=== PATIENT | male | born 1940 | race Caucasian/White ===

== ENCOUNTER → 2023-10-15 15:42 | Outpatient (REF) | payer OTHER, SELFPAY | LOC: HWRAD 15:42 | PROVIDERS: ATTENDING PHYSICIAN Family Medicine | DX: S32.000A Wedge compression fracture of unspecified lumbar vertebra, initial encounter for closed fracture (principal) | CPT/HCPCS: 72110 ==

== ENCOUNTER → 2023-10-29 06:28 | Day surgery (SDC) | payer OTHER, SELFPAY | LOC: GI 06:28 | PROVIDERS: ATTENDING PHYSICIAN Internal Medicine Gastroenterology | DX: R13.10 Dysphagia, unspecified (principal); K44.9 Diaphragmatic hernia without obstruction or gangrene; K22.70 Barrett's esophagus without dysplasia; K21.00 Gastro-esophageal reflux disease with esophagitis, without bleeding | CPT/HCPCS: 43239; 88305 ==

== ENCOUNTER → 2024-05-26 10:49 | Outpatient (REF) | payer OTHER, SELFPAY | LOC: DHSLP 10:49 | PROVIDERS: ATTENDING PHYSICIAN Internal Medicine; FAMILY PHYSICIAN Family Medicine | DX: G47.61 Periodic limb movement disorder (principal); G47.00 Insomnia, unspecified; G47.8 Other sleep disorders; R06.83 Snoring | CPT/HCPCS: 95810 ==

== ENCOUNTER → 2024-05-30 10:13 | Outpatient (REF) | payer OTHER, SELFPAY | LOC: HWRAD 10:13 | PROVIDERS: ATTENDING PHYSICIAN Internal Medicine Gastroenterology; FAMILY PHYSICIAN Family Medicine | DX: K70.30 Alcoholic cirrhosis of liver without ascites (principal) | CPT/HCPCS: 76700 ==

== ENCOUNTER 2024-09-21 14:35 | Outpatient (RCR) | payer OTHER, SELFPAY | END 2024-09-21 23:59 | disposition home or self-care (01) | LOC: RPT 14:35 | PROVIDERS: ATTENDING PHYSICIAN Family Medicine | DX: R26.89 Other abnormalities of gait and mobility (principal); Z73.6 Limitation of activities due to disability; M62.81 Muscle weakness (generalized) | CPT/HCPCS: 97010; 97110; 97112; 97163 ==

== ENCOUNTER → 2024-10-10 11:25 | Outpatient (REF) | payer OTHER, SELFPAY | LOC: HWRAD 11:25 | PROVIDERS: ATTENDING PHYSICIAN Internal Medicine Gastroenterology; FAMILY PHYSICIAN Family Medicine | DX: K70.30 Alcoholic cirrhosis of liver without ascites (principal) | CPT/HCPCS: 76700 ==

== ENCOUNTER 2024-10-26 14:43 | Outpatient (RCR) | payer OTHER, SELFPAY | END 2024-10-26 23:59 | disposition home or self-care (01) | LOC: RPT 14:43 | PROVIDERS: ATTENDING PHYSICIAN Family Medicine | DX: R26.89 Other abnormalities of gait and mobility (principal); Z73.6 Limitation of activities due to disability; M62.81 Muscle weakness (generalized) | CPT/HCPCS: 97010; 97110; 97112; 97116; 97530 ==

== ENCOUNTER 2024-11-02 14:45 | Outpatient (RCR) | payer OTHER, SELFPAY | END 2024-11-30 13:56 | disposition home or self-care (01) | LOC: RPT 14:45 | PROVIDERS: ATTENDING PHYSICIAN Family Medicine | DX: R26.89 Other abnormalities of gait and mobility (principal); M62.81 Muscle weakness (generalized); Z73.6 Limitation of activities due to disability | CPT/HCPCS: 97110; 97112 ==

== ENCOUNTER 2025-01-07 14:21 | Inpatient (IN) | payer OTHER, SELFPAY ==
[2025-01-07] VITALS (26 sets, daily range): BP systolic 84–181; BP diastolic 39–153; BMI 30.1; BMI 30.4
--- NOTE | 2025-01-07 12:24 | ED.GENMED ---
History of Present Illness
General
Chief Complaint: Weakness
Source: patient
Time Seen by Provider: 01/07/25 12:11
History of Present Illness
History of Present Illness:
This patient is an 84-year-old male, history of known alcohol use disorder, was intending to go to [place] for this on Thursday but has since changed his mind. His last drink of alcohol was 2 days ago. He notes increasing weakness and this
morning was unable to get out of bed which prompted him to call EMS. He was noted to be hypotensive and lightheaded, incontinent of stool. Patient states he is not incontinent but rather unable to make it to the toilet. He denies any specific
areas of pain, or focal weakness, just reports overall generalized weakness. He denies headache, chest pain, shortness of breath, cough, abdominal pain, nausea, vomiting. His stools have been brown without blood or melena. Patient denies other
complaints.
Past History
Past History
ED Past Medical History: GERD, Hypothyroidism and Other (peptic ulcer disease and chronic alcohol abuse, he has BPH alcohol withdrawal seizures difficulty with balance, colon polyps. )
ED Past Surgical History: Tonsilectomy, Urological and Other (The patient has had polypectomy, and prostate surgery. )
Social History
Tobacco: Non-smoker
Alcohol: Chronic alcoholic
Drug: None
Personal:
Living: with family
Employment: Not employed
Family History
Family History: Hypertension
Phy Exam
Physical Exam
Physical Exam:
GENERAL: Awake but tired appearing, in no apparent distress
EYE: pupils equal and reactive, conjunctive a slightly pale
NECK: Supple, no significant adenopathy.
ENT: o/p clr, mm extremely dry with dried blackish appearing discoloration at lips and tongue. Patient denies coffee-ground emesis or any vomiting and states that this discoloration is related to drinking red wine
CARDIAC: Regular rate and rhythm .
LUNGS: Clear breath sounds bilaterally, no acute respiratory distress, no wheezes/rales/rhonchi
ABDOMEN: Soft, without focal tenderness, no r/g
NEUROLOGICAL: Awake and oriented, no focal neuro deficits, follows commands, lucid
SKIN: Warm and dry, skin intact.
MUSCULOSKELETAL: No edema, well perfused.
PSYCH: Normal and appropriate interaction.
Course
Orders/Labs/Results
Orders:
Orders
01/07/25 11:53
EKG [Electrocardiogram (*1)] Urgent
Reason for Study: Chest Pain
EKG- Treatment ONCE
01/07/25 12:02
Acetaminophen Urgent
Comment: ADD ON
Alcohol Urgent
B-Hydroxybutyrate Urgent
Comment: ADD ON
Complete Blood Count/With Diff Urgent
Comprehensive Metabolic Panel Urgent
LDH Urgent
Comment: ADD ON
Magnesium Urgent
Comment: ADD ON
Phosphorus Urgent
Comment: ADD ON
Salicylate Urgent
Comment: ADD ON
01/07/25 12:21
Ammonia Urgent
01/07/25 12:22
Cardiac Monitoring- Treatment ONCE
Urinalysis Reflex To Culture Urgent
Date Specimen was Collected: 01/08/25
Time Specimen was Collected: 11:27
0.9% Sodium Chloride 1000 ml [Nss] 2,100 ml IV NOW STA
01/07/25 12:23
EKG- Treatment ONCE
01/07/25 12:27
Lactic Acid Q4H
Comment: CANCEL 2nd LACTIC ACID IF 1st LACTIC ACID IS LESS THAN 2
Troponin I Urgent
Blood Culture Q30M
BOB Source: Blood/Venous
Specimen Description:
Blood Culture Q30M
BOB Source: Blood/Venous
Specimen Description:
Pantoprazole [Protonix IV] 40 mg IV NOW STA
01/07/25 13:00
Flush (0.9% Sodium Chloride) [Flush (Nss)] See Dose Instructions IV PER PROTOCOL
Sterile Water For Inj [Sterile Water For Injection 1000 ml] 1,000 ml Sodium Chloride 38.5 meq Sodium Bicarbonate 100 meq IV 999 mls/hr
01/07/25 14:00
0.9% Sodium Chloride 1000 ml [Nss] 1,000 ml Mvi, Adult [Multivitamin] 10 ml Thiamine Injection 100 mg FOLic ACID [Folvite] 1 mg IV 500 mls/hr
01/07/25 14:09
Admit/Transfer Patient As Directed
Co-Sign Provider:
Level of Care: Inpatient admission
Assign to:: ICU
Physician / Group: rick
Diagnosis: SIRS of uncertain origin, severe metabolic acidosis
Reason for Hospitalization: SIRS of uncertain origin, severe metabolic acidosis with AG 27, Lactate acidosis,
acute ETOH hepatitis, DANIEL, severe thrombocytopemia, at hi risk for ETOH WDS
Expected length of stay greater than two midnights?: Yes
ELOS- Estimated Length of Stay in days: 5
I certify the patient meets the requirements for IP care: Yes
01/07/25 14:12
Code Status As Directed
Resuscitation Status: Full Code
01/07/25 16:52
0.9% Sodium Chloride 1000 ml [Nss] 1,000 ml IV 120 mls/hr
Bisacodyl [Dulcolax] 10 mg RECTAL [id number] PRN
Docusate W/Senna [Senokot-S] 1 tablet PO BIDPRN PRN
Polyethylene Glycol Powder [Miralax] 17 grams PO DAILYPRN PRN
01/07/25 16:52
GASTROINTESTINAL CONSULT Routine
Consulting Provider: Polina Hunter
Was physician already notified: Yes
Reason for consult: SIRS of uncertain origin, severe metabolic acidosis with AG 27, Lactate aci
HEMATOLOGY CONSULT Routine
Consulting Provider: Benny Prado
Was physician already notified: Yes
Reason for consult: SIRS of uncertain origin, severe metabolic acidosis, severe thrombocytosis,
[facility] Consult Routine
Consulting Provider: Yenni Smalls
Was physician already notified: Yes
Reason for consult: SIRS of uncertain origin, severe metabolic acidosis with AG 27, Lactate aci
NEPHROLOGY CONSULT Routine
Consulting Provider: Chance Banerjee
Was physician already notified: Yes
Reason for consult: SIRS of uncertain origin, severe metabolic acidosis with AG 27, Lactate aci
Activity As Directed
Activity Level: With Assistance
Intake/ Output As Directed
Frequency: Per unit guidelines
Pneumatic Compression Sleeves As Directed
Type: Knee high
Vital Signs As Directed
Frequency: Per unit guidelines
Weight As Directed
Frequency: Daily
DX Deep Vein Thrombosis Video Routine
01/07/25 17:33
Lactic Acid Q4H
Comment: CANCEL 2nd LACTIC ACID IF 1st LACTIC ACID IS LESS THAN 2
01/07/25 18:00
Piperacillin/Tazo 3.375 Gram [Zosyn] 3.375 gram in 50 ml IV Q6H
01/08/25 05:18
Complete Blood Count/No Diff IN AM
Comprehensive Metabolic Panel IN AM
Magnesium IN AM
01/08/25 06:00
Levothyroxine [Synthroid] 100 mcg PO DAILY@0600
01/09/25 08:08
Comprehensive Metabolic Panel IN AM
Magnesium IN AM
01/10/25 05:47
Comprehensive Metabolic Panel IN AM
Magnesium IN AM
Abnormal Lab Results
01/07/25 01/07/25
12:02 12:27
RBC 3.73 L 10^6/uL
(4.70-6.10)
Hgb 9.9 L g/dL
(13.0-18.0)
Hct 31.3 L %
(39.0-52.0)
MCH 26.5 L pg
(27.0-31.0)
MCHC 31.6 L g/dL
(33.0-37.0)
RDW 19.9 H %
(11.5-14.5)
Plt Count 36 L 10^3/uL
(130-400)
Abs Immat Gran (auto) 0.3 H 10^3/uL
(0-0.05)
Absolute Lymphs (auto) 1.1 L 10^3/uL
(1.2-3.4)
Absolute Monos (auto) 0.8 H 10^3/uL
(0.1-0.6)
Immature Gran % 4.0 H %
(0-0.5)
Lymphocytes % 16.0 L %
(20.5-51.1)
Monocytes % 12.0 H %
(1.7-9.3)
Sodium 134 L mmol/L
(135-145)
Carbon Dioxide 9 L* mmol/L
(22-30)
Creatinine 1.5 H mg/dL
(0.7-1.3)
Glucose 127 H mg/dl
(70-99)
Serum Osmolality 322 H mOsm/kg
(275-300)
Lactic Acid 14.1 H* mmol/L
(0.7-2.0)
Phosphorus 4.7 H mg/dl
(2.5-4.5)
Total Bilirubin 1.8 H mg/dl
(0.2-1.3)
AST 175 H U/L
(17-59)
ALT 82 H U/L
(0-50)
Alkaline Phosphatase 146 H U/L
(38-126)
Lactate Dehydrogenase 322 H U/L
(120-246)
Salicylates < 1.0 L mg/dl
(2.0-20.0)
Acetaminophen < 10 L ug/ml
(10-30)
B-Hydroxybutyrate 0.51 H mmol/L
(0.02-0.27)
01/07/25 12:02
01/07/25 12:02
Vital Signs
Initial and Last Documented VS:
Initial Vital Signs
Temp Pulse Resp Pulse Ox
96.1 F L 112 22 98
01/07/25 11:37 01/07/25 11:37 01/07/25 11:37 01/07/25 11:37
Last Documented Vital Signs
Temp Pulse Resp BP Pulse Ox
97.7 F 81 16 133/73 96
01/15/25 12:48 01/15/25 12:48 01/15/25 12:48 01/15/25 12:48 01/15/25 12:48
*Critical Care Note
Total Time (30-74mins, 75-104mins- exclusive of procedures): Not Applicable
Update Note
Update Note:
Patient presents to the Emergency Department with __generalized weakness
Number and Complexity of Problems Addressed at the Encounter
� Chronic conditions affecting care: History of fatty liver and alcohol use disorder
� Acute Exacerbation and/or Progression of Chronic Illness:
� Differential Diagnosis includes: But not limited to DKA, AKA, profound dehydration, sepsis, alcohol withdrawal, electrolyte disorder, etc. etc.
Amount and/or Complexity of Data to be Reviewed and Analyzed
� I performed an independent evaluation of and my interpretation is:
EKG: Read by me, sinus tachycardia, nonspecific T wave flattening, no acute ischemia
CT:
Xrays:
Laboratory Studies: Patient noted to be severely acidotic here with a anion gap, blood glucose level normal likely consistent with AKA, beta hydroxybutyrate, lactic acid, etc. pending. LFT abnormalities and anemia noted but at
baseline. Noted to have severelactic acidosis,?related to AUD vs liver dz vs hypotension.
Other:
� Review of other/old records reveals: Patient has had an endoscopy in the recent past, records reviewed, history of alcohol use disorder, fatty liver, reflux, etc.
� Clinical information was obtained by an independent historian:
� Prescriptions/Medications Considered but not given:
� Further testing considered but not performed:
Risk of Complications and/or Morbidity or Mortality of Patient Management
� Social determinants of health affecting care:
� Discussion with other providers (PCP, Hospitalists, Consultants, etc):
� Escalation of care including admission/observation vs risk of discharge considered: Bicarb drip started, volume resuscitation, PPI. No active bleeding. PT still awake lucid but remains hypotensive, almost 1800 ml infused.
placing second line now, may need pressors, suspect severe volume depletion however. Hospitalist aware, ICU.
Repeat assessment, bp is improving.
ED Attending Note
-
Portions of this chart may have been created with voice recognition software.� Occasional wrong word or��sound alike� substitutions may have occurred due to the inherent limitations of voice recognition software.
Discharge Plan
Departure
Patient Disposition: Admit
Date of Disposition: 01/07/25
Time of Disposition: 14:00
Admit to: ICU
Presentation/result/management discussed w/ accepting MD/DO: Hospitalist
Condition: Critical
Discharge Problem:
Metabolic acidosis, Dehydration
Interventions
Interventions:
*General Assessment Last Done: 01/07/25 12:22
*Neglect/Abuse Screening Last Done: 01/07/25 12:22
*ED- Fall Risk Assessment Last Done: 01/07/25 12:22
*Nursing Disposition Last Done: 01/07/25 17:00
ED- Cardiac Assessment Last Done: 01/07/25 12:22
ED- Neurological Assessment Last Done: 01/07/25 12:22
ED- Pulmonary Assessment Last Done: 01/07/25 12:22
Discharge Date and Time
Discharge Date/Time: 01/07/25 17:00
[2025-01-07] MEDS: NSS 2100 ML IV (12:25)
[2025-01-07 12:32] LABS: % Basophils 0.2 % (0-2); % Eosinophils 0.2 % (0-6); % Neutrophils 67.6 % (42.2-75.2); Absolute Immature Granulocytes 0.3 10^3/uL (0-0.05); Absolute Lymphocytes 1.1 10^3/uL (1.2-3.4); Absolute Monocytes 0.8 10^3/uL (0.1-0.6); Absolute Neutrophils 4.4 10^3/uL (1.4-6.5); Hematocrit 31.3 % (39.0-52.0); Hemoglobin 9.9 g/dL (13.0-18.0); Mean Corp Hgb Conc. 31.6 g/dL (33.0-37.0); Mean Corpuscular Hgb 26.5 pg (27.0-31.0); Mean Corpuscular Volume 83.9 fL (80.0-94.0); Nucleated Red Blood Cells % 1.2 % (-); Red Blood Cell Count 3.73 10^6/uL (4.70-6.10); Red Cell Dist. Width 19.9 % (11.5-14.5); White Blood Cell Count 6.6 10^3/uL (4.8-10.8)
[2025-01-07 12:39] LABS: AST (SGOT) 175 U/L (17-59); Albumin 4.1 g/dl (3.5-5.0); Alcohol 135 mg/dl; Alkaline Phosphatase 146 U/L (38-126); Blood Urea Nitrogen 9 mg/dl (9-20); Calcium 8.8 mg/dl (8.4-10.2); Carbon Dioxide 9 mmol/L (22-30); Chloride 98 mmol/L (98-107); Estimated Creatinine Clearance 41 ml/min; Glucose 127 mg/dl (70-99); Potassium 4.3 mmol/L (3.5-5.1); Sodium 134 mmol/L (135-145); Total Bilirubin 1.8 mg/dl (0.2-1.3); Total Protein 7.8 g/dl (6.3-8.2); eGFR 45.91
[2025-01-07 12:40] LABS: Ammonia 22 umol/L (9-30)
[2025-01-07 12:48] LABS: ALT (SGPT) 82 U/L (0-50)
[2025-01-07 13:03] LABS: Mean Platelet Volume 9.9 fL (7.4-10.4); Platelet Count 36 10^3/uL (130-400)
[2025-01-07 13:08] LABS: Troponin I < 0.012 ng/ml
[2025-01-07 13:18] LABS: Lactic Acid 14.1 mmol/L (0.7-2.0)
--- NOTE | 2025-01-07 13:38 | HPS.HSE ---
Addendum entered and electronically signed by Jasson Ascencio MD 01/07/25 15:19:
Laboratory Tests
01/07/25
12:02
B-Hydroxybutyrate 0.51 H
POS BHB suspect ETOH ketosis
Original Note:
Family Physician
-
Family Physician: NO INTERVIEW UNKNOWN
Chief Complaint
-
increasing weakness
History of Present Illness
HPI
84M HX ETOH use disorder, ETOH WD Sz, GERD, PUDz, was intending to go to [place] for this on Thursday but has since changed his mind.
- last drink of alcohol was 2 days ago
- reports increasing weakness and this morning was unable to get out of bed which prompted him to call EMS.
- brown stools , denied blood or melena.
- denies any specific areas of pain, or focal weakness, just reports overall generalized weakness.
- denies headache, chest pain, shortness of breath, cough, abdominal pain, nausea, vomiting.
At ER
- hypotensive and lightheaded
- faecal incontinence due to urgency and caught short
Medical History
Past Medical History
Past Medical History: Reports GERD (Peptic ulcer dz ), Hypothyroidism, Seizures (, ETOH withdrawal Sz) and Other (ETPH use disorder )
Additional Past Medical History:
BPH, balalnce disorder, Colon polyps
Past Surgical History: Reports Urological ( prostate surgery. )) and Other (polypectomy)
Social History
Tobacco: Non-smoker
Alcohol: Chronic Alcoholic
Personal:
Living: With Family
Employment: Not Employed
Family History
Family History: Hypertension
Allergies / Home Medications
Allergies reflects when Allergies were last updated in [facility].
Home Medications with original date entered in [facility]
Allergy/Medication List:
Allergies
Allergy/AdvReac Type Severity Reaction Status Date / Time
No Known Allergies Allergy Verified 01/29/22 13:28
Home Medications
quetiapine 100 mg tablet 100 mg PO HS Mental Health/Anxiety 11/17/19
venlafaxine 37.5 mg capsule,extended release 24 hr (Effexor XR) 37.5 mg PO BID Mental Health/Anxiety 11/17/19
buspirone 10 mg tablet 20 mg PO DAILY Mental Health/Anxiety 12/02/19
levothyroxine 100 mcg tablet 100 mcg PO DAILY Thyroid 12/02/19
quetiapine 25 mg tablet 50 mg PO BID Mental Health/Anxiety 12/02/19
trazodone 100 mg tablet 100 mg PO HS Mental Health/Anxiety 12/02/19
Prevagen 1 tab PO DAILY Supplement 01/21/20
omeprazole 10 mg capsule,delayed release (Prilosec) 40 mg PO DAILY Gastrointestinal issue 01/21/20
acetaminophen 325 mg tablet 650 mg (2 x 325 mg) PO Q6HPRN PRN moderate pain #30 tabs 01/25/20
<del>amoxicillin</del> <del>500</del> <del>mg</del> <del>capsule</del> <del>500</del> <del>mg</del> <del>PO</del> <del>TID</del> <del>14</del> <del>days</del> <del>#42</del> <del>caps</del> <del>01/25/20</del>
Review of Systems
-
Constitutional: Reports Fatigue (weakness )
EENT: Reports No Symptoms
Respiratory: Reports No Symptoms
Cardiac: Reports No Symptoms
Abdomen/GI: Reports No Symptoms
: Reports No Symptoms
Musculoskeletal: Reports No Symptoms
Skin: Reports No Symptoms
Neurological: Reports No Symptoms, Dizzy, Weakness and Other (associated ambulatory dysfunction )
Endocrine: Reports No Symptoms
Hematologic/Lymphatic: Reports No Symptoms
Psych: Reports No Symptoms
Physical Exam
Vital Signs
Vital Signs
Temp Pulse Resp BP Pulse Ox
96.1 F L 107 17 84/48 96
01/07/25 11:37 01/07/25 12:04 01/07/25 12:04 01/07/25 12:03 01/07/25 12:04
Physical Exam
General: Conversant and Other (looks tired )
HEENT: NormoCephalic, PERRLA and Other ( dried blackish appearing discoloration at lips and tongue. Patient denies coffee-ground emesis or any vomiting and states that this discoloration is related to drinking red wine); No [place] Conjunctivae (pale
conjunctiva )
Respiratory: Clear
Cardiac: S1/S2 and JVD
GI: Soft and Non Tender
Genito-urinary: Deferred by me
Neuro: Awake, AO x 3 and Nonfocal/grossly intact
Psych: Other (Normal and appropriate interaction.)
Laboratory Results
-
01/07/25 12:02
01/07/25 12:02
Laboratory Results
Lactic Acid 14.1 mmol/L (0.7-2.0) H* 01/07/25 12:27
Total Bilirubin 1.8 mg/dl (0.2-1.3) H 01/07/25 12:02
AST 175 U/L (17-59) H 01/07/25 12:02
ALT 82 U/L (0-50) H 01/07/25 12:02
Alkaline Phosphatase 146 U/L (38-126) H 01/07/25 12:02
Troponin I < 0.012 ng/ml 06/07/25 12:27
Data Reviewed
-
Diagnostic Radiology: Report Reviewed by me
Lab Data: Labs Reviewed by me
Old Records: Reviewed
Impression/Plan
-
Selected Entries
01/07/25
11:37 01/07/25
12:03 01/07/25
12:04
Temp 96.1 F L
Temp route: Rectal
Pulse 112 107
Resp Rate 22 17
Blood pressure 84/48
SaO2 98 96
[place]
01/29/22 01/07/25
14:56 12:02
Hgb 12.2 L 9.9 L
Plt Count 222 36 L
Sodium 134 L 134 L
Carbon Dioxide 28 9 L*
Creatinine 1.0 1.5 H
10/25/24 Abdominal ultrasound.
- The liver is normal in size, measuring 17.0 cm in length.
- It is normal in echogenicity.
- There is no focal hepatic lesion or intrahepatic biliary dilation.
- The gallbladder has been removed.
- The common duct is normal, measuring 3 mm.
- The pancreas is nonvisualized due to overlying bowel gas.
- The spleen is normal in size and shows no focal abnormality.
- Survey evaluation of the kidneys shows no hydronephrosis.
- No free fluid is seen in the abdomen.
- The proximal IVC and abdominal aorta are nonvisualized due to overlying bowel gas.
Last hospitalist admission: 01/21/2020 - 01/25/2020
DC DXS:
1. Acute calculous cholecystitis.
2. Enterococcus bacteremia.
ASSESSMENT & PLAN
Pending Rx reconciliation
SIRS picture ( Hypothermic, tachycardic, Hypotensive)
DDX: severe dehydration vs. element of sepsis vs. metabolic severe acid base dysfunction
- BCx sent
- unable to order PCT to DANIEL and ALI
- Empiric IV Zosyn
- Renal and ICU consult
Severe metabolic acidosis AG 27 DDX : ETOH starvation Ketosis
lactate acidosis with LA 14
Sever hypocarbia @ [address] 1.5, eGFR 45
BG 127
BCx sent
- Pending BHB
- check VBG
- s/p IV NS 2100 ml - cont IV NS
- HCO3 gtt ( Na HCO3 100meq in sterile water ) @ 125 ml/H
- Await ICU and Renal evaluation
Acute ETOH hepatitis
Transaminitis ( Revered AST@ 175 & ALT@ 82 ratio)
- Pending Salicylates and Acetaminophen level
- Pending Mg and Phos
- GI consult
Severe thrombocytopenia - Plt 36 : Consumption due to Hypersplenism
Normal Albumin 4.1
- US complete abdomen
- avoid NSIAD and Platelets
- Heme Consult
HX ETOH use disorder
HX ETOH WD Sz
- ETOH WD protocol
HX GERD
HX PUDz
- on OP PO PPI - will switch to IV PPI daily
Hypothyroidism
- Pending Rx reconciliation (levothyroxine 100 mcg is listed )
Depression and Anxiety
- Pending Rx reconciliation ( quetiapine + venlafaxine + buspirone + trazodone are listed)
DVT Px: SCD
Full code
ICU
Total Critical Care Time__65 _ minutes. I was immediately available to the patient and staff. I personally examined, reviewed labs, diagnostic images/reports, interpretations, treatment plans, discussed patient care with other providers and
family or caregivers (if patient is unable to make decisions), entered orders as appropriate and documented the medical record.
[2025-01-07] MEDS: PROTONIX IV 40 MG IV (13:56)
[2025-01-07] MEDS: SODIUM CHLORIDE 1109.625 MEQ IV ×2 (13:56)
--- NOTE | 2025-01-07 14:26 | W.CON.NEPH ---
Consultation
-
Date/Time Consultation Requested: 01/07/251429
Date/Time Consultation Performed: 01/07/251429
Requesting Provider: Dr. Ascencio
Performing Provider: Dr. Banerjee
Reason for Consultation: DANIEL
Medical History
-
Chief Complaint: weakness
History of Present Illness:
This patient is an 84-year-old male, with alcohol use disorder. His last drink of alcohol was 2 days ago. He notes increasing weakness and this morning was unable to get out of bed. He says he fell out of bed today which prompted him to call EMS.
He was noted to be hypotensive and lightheaded, incontinent of stool. Patient states he is not incontinent but rather unable to make it to the toilet. Therefore he wears a diaper. He denies being lightheaded or dizzy. He also denies any pain
whatsoever. There is no itching. He denies any issues with stool or urine. There has been no epistaxis. He is does not appear to be aware of any bruising. Oral intake has been poor for at least 3 days.
Past Medical History
GERD
Hypothyroidism
peptic ulcer disease
chronic alcohol abuse
BPH
alcohol withdrawal seizures
subdural hematoma
diverticulosis
colon polyps
Tonsillectomy
cataract surgery
polypectomy
bladder CA/surgery (TURBT)
cholecystectomy
Social History
Tobacco: Non-Smoker
Alcohol: Chronic Alcoholic
Family History
Family History: Hypertension
Allergies / Home Medications
Allergy/AdvReac Type Severity Reaction Status Date / Time
No Known Allergies Allergy Verified 01/29/22 13:28
�Medication �Instructions �Recorded �Confirmed �Type
quetiapine 100 mg tablet 100 mg PO HS Mental Health/Anxiety 11/17/19 01/21/20 History
venlafaxine 37.5 mg 37.5 mg PO BID Mental 11/17/19 01/21/20 History
capsule,extended release 24 hr Health/Anxiety
(Effexor XR)
buspirone 10 mg tablet 20 mg PO DAILY Mental 12/02/19 01/21/20 History
Health/Anxiety
levothyroxine 100 mcg tablet 100 mcg PO DAILY Thyroid 12/02/19 01/21/20 History
quetiapine 25 mg tablet 50 mg PO BID Mental Health/Anxiety 12/02/19 01/21/20 History
trazodone 100 mg tablet 100 mg PO HS Mental Health/Anxiety 12/02/19 01/21/20 History
Prevagen 1 tab PO DAILY Supplement 01/21/20 01/21/20 History
omeprazole 10 mg capsule,delayed 40 mg PO DAILY Gastrointestinal 01/21/20 01/21/20 History
release (Prilosec) issue
acetaminophen 325 mg tablet 650 mg (2 x 325 mg) PO Q6HPRN PRN 01/25/20 Rx
moderate pain #30 tabs
amoxicillin 500 mg capsule 500 mg PO TID 14 days #42 caps 01/25/20 Rx
Review of Systems
-
All other systems: Negative unless noted
Physical Exam
Vital Signs
Vital Signs
Temp Pulse Resp BP Pulse Ox
96.1 F L 116 24 97/48 98
01/07/25 11:37 01/07/25 14:04 01/07/25 14:04 01/07/25 14:04 01/07/25 13:20
Lab Results
WBC 6.6 10^3/uL (4.8-10.8) 01/07/25 12:02
RBC 3.73 10^6/uL (4.70-6.10) L 01/07/25 12:02
Hgb 9.9 g/dL (13.0-18.0) L 01/07/25 12:02
Hct 31.3 % (39.0-52.0) L 01/07/25 12:02
Plt Count 36 10^3/uL (130-400) L 01/07/25 12:02
Sodium 134 mmol/L (135-145) L 01/07/25 12:02
Potassium 4.3 mmol/L (3.5-5.1) 01/07/25 12:02
Chloride 98 mmol/L (98-107) 01/07/25 12:02
Carbon Dioxide 9 mmol/L (22-30) L* 01/07/25 12:02
BUN 9 mg/dl (9-20) 01/07/25 12:02
Creatinine 1.5 mg/dL (0.7-1.3) H 01/07/25 12:02
eGFR 45.91 01/07/25 12:02
Glucose 127 mg/dl (70-99) H 01/07/25 12:02
Calcium 8.8 mg/dl (8.4-10.2) 01/07/25 12:02
Phosphorus Cancelled 01/07/25 13:31
Albumin 4.1 g/dl (3.5-5.0) 01/07/25 12:02
Laboratory Tests
01/29/22
14:56
Creatinine 1.0
Laboratory Tests
01/07/25
12:27
Lactic Acid 14.1 H*
Physical Exam
Patient is awake alert oriented to year only (December 2024, no date) and in no distress. Mood and affect were pleasant, insight and judgment were poor. Pupils are equal round and reactive to light, extraocular movements are intact, sclera were
anicteric. Hearing was normal, ears and nose are intact. Oropharynx was clear but dry. Neck was supple with trachea midline and no thyromegaly. Heart was regular rate and rhythm without rubs. Lower extremities without edema. Lungs were clear to
auscultation bilaterally and with normal excursion. Abdomen was soft, nontender, with normal active bowel sounds, and no hepatosplenomegaly. Skin was with petechial rash thighs bilaterally and with normal turgor.
Data Reviewed
-
Medical Tests (Nuc Med, Echo etc): Image Personally Visualized and interpreted (EKG 01/07/25 my reading nsr, inferior q)
Assessment/Plan
-
Assessment
DANIEL
Anemia
Thrombocytopenia
Metabolic acidosis, anion gap
Lactic acidosis
Hyponatremia
Alcohol use disorder
Hypotension
Failure to thrive
Fall
Plan
Aggressive volume resuscitation
Bicarbonate based fluids
Bladder scan, check urine if available
VBG
CT abdomen pelvis
Blood cultures pending
Critical care time spent 31 minutes
[2025-01-07 14:47] LABS: Phosphorus 4.7 mg/dl (2.5-4.5)
[2025-01-07 14:48] LABS: Acetaminophen < 10 ug/ml (10-30); Magnesium 2.2 mg/dl (1.6-2.3); Salicylate < 1.0 mg/dl (2.0-20.0)
[2025-01-07 14:58] LABS: B-Hydroxybutyrate 0.51 mmol/L (0.02-0.27)
[2025-01-07] MEDS: MULTIVITAMIN 1011.2 ML IV (15:45)
[2025-01-07] MEDS: MULTIVITAMIN 1011.2 MG IV ×2 (15:45)
[2025-01-07 16:24] LABS: LDH 322 U/L (120-246)
[2025-01-07 17:08] LABS: Glucose - Point of Care 116 mg/dl (70-99)
--- NOTE | 2025-01-07 17:26 | CON.INTV ---
Consultation
Consultation Request
Date/Time Consultation Requested: 01/07/2025
Date/Time Consultation Performed: 01/07/2025
Requesting Provider: Jasson Ascencio
Performing Provider: Mark Smalls
Reason for Consultation: Acidosis
Medical History
-
Chief Complaint: Weakness, lethargy
History of Present Illness:
Patient is an 84-year-old gentleman with history of alcohol use disorder who stopped drinking about 2 days ago. Patient reports developing increasing weakness and lethargy and inability to get out of bed which prompted a call to emergency medical
service. Patient reportedly noted to have dizziness, hypotension and was incontinent of stool. In the emergency room workup included lactate level which was significantly elevated at 14. Patient also noted to have acute kidney injury. In view of
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
Past Medical History
Past Medical History: Reports GERD (Peptic ulcer dz ), Hypothyroidism, Seizures (, ETOH withdrawal Sz) and Other (ETPH use disorder )
Additional Past Medical History:
BPH, balalnce disorder, Colon polyps
Past Surgical History: Reports Urological ( prostate surgery. )) and Other (polypectomy)
Social History
Tobacco: Non-smoker
Alcohol: Chronic Alcoholic
Personal:
Living: With Family
Employment: Not Employed
Family History
Family History: Hypertension
Allergies / Home Medications
Allergies / Home Medications
Allergies
Allergy/AdvReac Type Severity Reaction Status Date / Time
No Known Allergies Allergy Verified 01/29/22 13:28
Home Medications
�Medication �Instructions �Recorded �Confirmed �Last Taken �Type
quetiapine 100 mg tablet 100 mg PO HS Mental Health/Anxiety 11/17/19 01/21/20 01/21/20 History
venlafaxine 37.5 mg 37.5 mg PO BID Mental 11/17/19 01/21/20 01/21/20 History
capsule,extended release 24 hr Health/Anxiety
(Effexor XR)
buspirone 10 mg tablet 20 mg PO DAILY Mental 12/02/19 01/21/20 01/21/20 History
Health/Anxiety
levothyroxine 100 mcg tablet 100 mcg PO DAILY Thyroid 12/02/19 01/21/20 01/21/20 History
quetiapine 25 mg tablet 50 mg PO BID Mental Health/Anxiety 12/02/19 01/21/20 01/21/20 History
trazodone 100 mg tablet 100 mg PO HS Mental Health/Anxiety 12/02/19 01/21/20 01/20/20 History
Prevagen 1 tab PO DAILY Supplement 01/21/20 01/21/20 Unknown History
omeprazole 10 mg capsule,delayed 40 mg PO DAILY Gastrointestinal 01/21/20 01/21/20 01/21/20 History
release (Prilosec) issue
acetaminophen 325 mg tablet 650 mg (2 x 325 mg) PO Q6HPRN PRN 01/25/20 Unknown Rx
moderate pain #30 tabs
amoxicillin 500 mg capsule 500 mg PO TID 14 days #42 caps 01/25/20 Unknown Rx
Review of Systems
-
Hematologic/Lymphatic: Other (Reports feeling weak, lethargic. No reported vomiting. Feels tremulous and generally feels unwell. No reported chest pain or shortness of breath. Feels thirsty)
Vitals / Labs / Diagnostic Testing
Vital Signs
Temp Pulse Resp BP Pulse Ox
97.7 F 117 22 99/51 98
01/07/25 17:13 01/07/25 16:17 01/07/25 16:17 01/07/25 15:40 01/07/25 13:20
Lab Data
01/07/25 12:02
01/07/25 12:02
Diagnostic Testing:
Physical Exam
-
HEENT: Other (Dry looking oral mucosa.)
Cardiovascular: S1/S2 (Tachycardic on exam)
Respiratory: Rhonchi (Tachypnea noted)
GI: Soft and Non Tender
Neurology: Awake, Alert and Tremors
Skin: Other (Somewhat cold extremities)
General: Comfortable
Assessment
-
#1. Hypotension with SIRS
- 88/48 on initial admission
- Patient quite volume depleted on exam. Status post 2.5 L bolus in the emergency room, currently continuing aggressive IV hydration
- Blood cultures have been obtained. Otherwise patient is afebrile and has a normal white count.
- Check stat chest x-ray, await CT abdomen pelvis
- Responded well to fluid bolus, normotensive now without needing any pressors
- EKG, sinus tachycardia, QTc 492. White count normal at 6.6. Hemoglobin 9.9 and platelet count 36,000. Sodium at 134, creatinine 1.5. Bicarb significantly decreased at 9 and lactate elevated at 14.1. No chest pain reported, troponin negative.
- Suspect underlying severe metabolic acidosis also contributing to hypotension. Patient has empirically been started on Zosyn IV
- Check UA to evaluate for any urinary tract infection
#2. High anion gap metabolic acidosis with lactic acidosis
- Anion gap calculated at 27.
- Calculated serum osmolality 278. Will order serum osmolality to see if there is any osmolal gap
- Last alcohol was last night. No reported history of drinking antifreeze, windshield wiper fluid etc.
- Initial lactate level significantly elevated at 14.
- S/p 2.5 L crystalloid bolus and currently isotonic bicarb infusion going. Blood cultures have been drawn
- Await CT abdomen pelvis. Stat chest x-ray. Continue IV hydration, pressor support as needed to keep MAP above 65
- ABG 7.22, 21, 132. Compensatory respiratory alkalosis noted.
- Check UA
- Salicylate and Tylenol level negative. Alcohol level elevated 135. Beta-hydroxybutyrate elevated at 0.51
- Suspect alcohol and starvation related ketosis, continue IV hydration.
- Clear liquids only since patient is at risk of requiring intubation and mechanical ventilation
#3. Acute kidney injury with mild hyponatremia
- ? Prerenal
- Continue aggressive IV hydration and serial lab work
#4. History of alcoholism with alcohol-related liver disease
- Abnormal LFTs noted, AST ALT both elevated. LDH elevated at 322. PT/INR pending
- Alcohol level elevated at 135. Ketosis noted
- Continue IV hydration, continue thiamine, folic acid and multivitamin replacement
- At risk of alcohol withdrawal, monitor closely in the ICU
- Phenobarbital IV, MSAS
#5. Thrombocytopenia
- 36,000 noted on lab work
- ? Related to alcoholic liver disease. Await CT abdomen pelvis
- Check PT/INR, PTT
#6. History of GERD
- IV PPI for now
DVT prophylaxis. SCDs
Critical Care time 70 mins -- The patient is admitted for acute critical illness for the treatment of vital organ failure and/or prevention of further life-threatening conditions. Total care includes time spent in review of history, physical exam,
medications, hemodynamic/ventilator parameters, laboratory data, imaging and discussion with house staff, pharmacy, respiratory therapy, oxygen equipment technician, and nursing.
Data:
Stress test 01/2022: Normal perfusion no fixed or reversible defects noted.
ECHO 12/2021: Normal left ventricular size, wall thickness and systolic function. No regional
wall motion abnormalities are seen. LV ejection fraction is 60-65%.
No significant valvular disease.
Compared to the previous echo from May 2019, there is no significant
change.
[2025-01-07 17:27] LABS: B.E. -17.4 mmol/L; O2 Saturation % 99.6 % (94-98); PCO2 21 mmHg (35-48); PO2 132 mmHg (83-108); pH 7.22 (7.35-7.45)
[2025-01-07 17:28] LABS: HCO3 8.6 mmol/L (21-28); O2 Therapy 6L
[2025-01-07 17:50] LABS: INR 1.57
[2025-01-07 17:52] LABS: APTT 34.6 Sec (23.4-35.0)
[2025-01-07 18:02] LABS: GGTP 185 U/L (15-73)
[2025-01-07] MEDS: THIAMINE INJECTION IV (18:07)
[2025-01-07] MEDS: ZOSYN 50 IV (18:11)
[2025-01-07] MEDS: SODIUM BICARBONATE 1075 MEQ IV (18:15)
[2025-01-07 18:16] LABS: Lactic Acid 12.5 mmol/L (0.7-2.0)
[2025-01-07 18:26] LABS: Osmolality Serum 322 mOsm/kg (275-300)
--- NOTE | 2025-01-07 18:29 | PTCARENOTE ---
Rec'd pt at approx 1700 from ED. Pt AAOx3, slightly forgetful. Follows commands, [place]. Monitor ST 110's. +SIGALA/orthopnea. pox 85% on RA, nasal cannula applied, titrated up to 6LNC, initially pox 92%, now up to 97%. +BS, abd large/round. CHG bath
completed. See skin/wound assessment.
[2025-01-07] MEDS: VANCOCIN 530 MG IV (19:44)
[2025-01-07] MEDS: ATIVAN 1 MG PO (20:04)
--- NOTE | 2025-01-07 20:12 | PTCARENOTE ---
Received patient laying in bed, AAOx3. He is forgetful at times and just stated he saw a cardboard box on his table that had all his medicine in it, which was not on his table. MSAS = 5 - PO ativan given per protocol. ADRIA. Has difficulty following
directions but is overall cooperative. Fidgets and restless in bed at times. ST on tele, HR 110-120. Weak DP pulses. No edema. SCDs maintained. On 6L NC, spo2 96%. Lungs diminished throughout. Hypoactive bowel sound. Clear liquid diet. Incontinent
of urine. Bicarb gtt @ 100ml/hr infusing R hand #20. Repositioning pt as needed. Call ott in reach. Bed alarm on.
, Adia, called for an update.
[2025-01-07] MEDS: PHENOBARBITAL 97.5 MG IV (21:27)
[2025-01-08] VITALS (25 sets, daily range): BP systolic 97–143; BP diastolic 55–112; BMI 31.4
[2025-01-08] MEDS: ZOSYN 50 IV ×5 (00:05→23:36)
[2025-01-08] MEDS: THIAMINE INJECTION 200 MG IV ×4 (00:05→23:36)
[2025-01-08] MEDS: ATIVAN 1 MG PO ×2 (00:05→04:12)
--- NOTE | 2025-01-08 00:30 | PTCARENOTE ---
Required another dose of PO ativan for MSAS of 5. Pt. resting on and off. Restless in bed, requiring frequent repositioning. Still able to answer orientation questions.
--- NOTE | 2025-01-08 04:31 | PTCARENOTE ---
Pt. restless at times, MSAS = 6- ativan given. Seems slightly more confused than prior but still able to answer most questions appropriately. HR has slowly improved, now low 100s. BP stable 100s/60s. Bathed with CHG
[2025-01-08] MEDS: SODIUM BICARBONATE 1075 MEQ IV (04:36)
[2025-01-08 05:40] LABS: Hemoglobin 8.1 g/dL (13.0-18.0); Mean Corp Hgb Conc. 35.2 g/dL (33.0-37.0); Mean Corpuscular Hgb 27.7 pg (27.0-31.0); Mean Corpuscular Volume 78.8 fL (80.0-94.0); Platelet Count 27 10^3/uL (130-400); Red Blood Cell Count 2.92 10^6/uL (4.70-6.10); Red Cell Dist. Width 19.1 % (11.5-14.5); White Blood Cell Count 4.2 10^3/uL (4.8-10.8)
[2025-01-08 05:42] LABS: Lactic Acid 2.2 mmol/L (0.7-2.0)
[2025-01-08 05:55] LABS: ALT (SGPT) 382 U/L (0-50); Albumin 3.4 g/dl (3.5-5.0); Alkaline Phosphatase 131 U/L (38-126); Blood Urea Nitrogen 16 mg/dl (9-20); Calcium 7.6 mg/dl (8.4-10.2); Carbon Dioxide 22 mmol/L (22-30); Chloride 103 mmol/L (98-107); Estimated Creatinine Clearance 46 ml/min; Glucose 109 mg/dl (70-99); Magnesium 1.7 mg/dl (1.6-2.3); Sodium 132 mmol/L (135-145); Total Bilirubin 2.4 mg/dl (0.2-1.3); Total Protein 6.7 g/dl (6.3-8.2); eGFR 54.51
[2025-01-08 06:09] LABS: AST (SGOT) 1229 U/L (17-59)
[2025-01-08 06:35] LABS: Creatine Phosphokinase 795 U/L (55-170)
[2025-01-08 06:43] LABS: INR 1.51; PT 18.5 Sec (11.4-14.6)
[2025-01-08] MEDS: SYNTHROID 100 MCG PO (07:18)
[2025-01-08] MEDS: PHENOBARBITAL 97.5 MG IV ×3 (07:37→21:44)
[2025-01-08] MEDS: FOLVITE 1 MG PO (07:37)
[2025-01-08] MEDS: DESENEX/MITRAZOL/ZEASORB 1 APPLIC TOPICAL ×2 (07:38→19:26)
--- NOTE | 2025-01-08 07:55 | W.PN.HOSP.TC ---
Addendum entered and electronically signed by Tony Torres MD 01/10/25 22:03:
SIRS with organ dysfunction
Original Note:
Today's Communication/Plan
-
Continue IV fluids
Phenobarb taper
Prednisolone
Assessment / Plan
Assessment / Plan
Physical Exam
General: Not in acute distress
HEENT: Normocephalic
Respiratory: Decreased breath sounds bilaterally
Cardiac: S1/S2. RRR.
GI: Soft and Non Tender. Positive bowel sounds.
Neuro: Lethargic. Difficult to arouse.
Psych: Other (Normal and appropriate interaction.)
Assessment/Plan
84 y/o male past medical history of ETOH use disorder, ETOH WD Sz, GERD, PUDz, last drink of ETOH was 2 days prior to presentation, presented with fall and increasing weakness and on the day of presentation, was unable to get out of bed which
prompted him to call EMS. Evaluation consistent with SIRS of uncertain origin, severe metabolic acidosis with AG 27, Lactate acidosis, POS BHB suspect ETOH - starvation ketosis, acute ETOH hepatitis, DANIEL, severe thrombocytopenia, at high risk for
ETOH WDS.
Presentation SIRS picture (Hypothermic, tachycardic, Hypotensive)
Hypotension
Hypovolemia on Presentation
-Afebrile, no leukocytosis
-Follow UA studies to check for any possible urinary tract infection
-Responded well to intravenous fluid boluses
-Continue broad spectrum antibiotics.
-If cultures with no growth in 48 hours, consider stopping antibiotics
Anion Gap Metabolic Acidosis - from alcohol, dehydration, starvation, lactic acidosis
Lactic Acidosis
- Anion gap resolved after initial IV bolus followed by isotonic bicarb infusion
DANIEL
- Improving with IV fluids
Mild Hyponatremia
- Suspected hypovolemic
- Continue IV fluids
Alcohol Use Disorder
Alcoholic Hepatitis
- Increasing transaminases
- Based on Betsy's Discriminant Function for Alcoholic Hepatitis, patient can benefit from Prednisolone
- Prednisolone started -- continue
- Continue Phenobarb taper
- Continue MSAS protocol
- Continue IV fluids, vitamins
Severe thrombocytopenia
- US complete abdomen
- Suspected from liver disease
HX GERD
HX PUDz
- on OP PO PPI - continue IV PPI daily
Hypothyroidism
- Pending Rx reconciliation (levothyroxine 100 mcg is listed )
Depression and Anxiety
- Pending Rx reconciliation ( quetiapine + venlafaxine + buspirone + trazodone are listed)
DVT Px: SCDs. Consider chemical DVT prophylaxis if platelets improve.
Full code
ICU
Anticipated Discharge: > 48 hours
Subjective/Interval History
-
Date of Service: January 08, 2025
Patient was seen and examined. He was very lethargic and hard to arouse this morning, nurse reported it was because of Phenobarbital and Ativan patient received overnight.
Objective Data
-
Labs:
Laboratory Results
01/08/25 01/08/25
05:18 06:23
WBC 4.2 L
Hgb 8.1 L
Hct 23.0 L
Plt Count 27 L* D
PT 18.5 H
INR 1.51
Sodium 132 L
Potassium 4.0
Chloride 103
Carbon Dioxide 22
BUN 16
Creatinine 1.3
Glucose 109 H
Calcium 7.6 L
Total Bilirubin 2.4 H
AST 1229 H*
ALT 382 H
Alkaline Phosphatase 131 H
Vital Signs:
Vital Signs
Temp Pulse Resp BP Pulse Ox
97.9 F 90 19 97/61 97
01/08/25 04:30 01/08/25 06:30 01/08/25 06:30 01/08/25 06:00 01/08/25 06:30
I&O
01/07/25 01/08/25 01/09/25
06:59 06:59 06:59
Intake Total 2139
Balance 2139
--- NOTE | 2025-01-08 08:49 | PTCARENOTE ---
Rec'd pt at 0700. Pt sedate, awakens very briefly. Monitor SR. Lungs dim, pox 99% on 2LNC. Abd soft/round, +BS. MSAS-3, not requiring meds per protocol. Pt repositioned.
--- NOTE | 2025-01-08 09:27 | CON.ONC ---
Consultation
-
Date Consultation Requested: 01/08/25
Date Consultation Performed: 01/08/25
Requesting Provider: SHANIA
Performing Provider: PETEY
Reason for Consultation: THROMBOCYTOSIS
Impression
Impression
Thrombocytopenia-- multifactorial; ETOH suppression/ 'sepsis' due to pancolitis
Plan
Plan
transfuse plt <20 given the mild elevation of coags or for interventins-- please obtain repeat platelt count 30 min post platelet transfusion to document response then the following day to ascertain duration of same-- he has no signs of bleding--
[place] clear--small ecchymotic areas of forearms /none on BLE-- no petechiae-- will followup
Patient History
History of Present Illness
unfortunate 84yo M admitted with weakness /incontinence of stool admitted with with severe acidemia and myelosuppression with CT scan A/P noting pancolitis . He has hx of ETOHism last drink 2 days prior to admission. His acidemia corrected with
aggressive IV hydration as did mild pre-renal azotemia though cytopeniaas persisted. He has survived invsive bladder cancer having undergone resection with sruveiilance cystoscopies folowing BCG therapy
Past-Medical/Surgical History
bladder carcinoma; hypothyroid; GERD; depression
Patient Medication
�Medication �Instructions �Recorded �Confirmed �Last Taken �Type
quetiapine 100 mg tablet 100 mg PO HS Mental Health/Anxiety 11/17/19 01/21/20 01/21/20 History
venlafaxine 37.5 mg 37.5 mg PO BID Mental 11/17/19 01/21/20 01/21/20 History
capsule,extended release 24 hr Health/Anxiety
(Effexor XR)
buspirone 10 mg tablet 20 mg PO DAILY Mental 12/02/19 01/21/20 01/21/20 History
Health/Anxiety
levothyroxine 100 mcg tablet 100 mcg PO DAILY Thyroid 12/02/19 01/21/20 01/21/20 History
quetiapine 25 mg tablet 50 mg PO BID Mental Health/Anxiety 12/02/19 01/21/20 01/21/20 History
trazodone 100 mg tablet 100 mg PO HS Mental Health/Anxiety 12/02/19 01/21/20 01/20/20 History
Prevagen 1 tab PO DAILY Supplement 01/21/20 01/21/20 Unknown History
omeprazole 10 mg capsule,delayed 40 mg PO DAILY Gastrointestinal 01/21/20 01/21/20 01/21/20 History
release (Prilosec) issue
acetaminophen 325 mg tablet 650 mg (2 x 325 mg) PO Q6HPRN PRN 01/25/20 Unknown Rx
moderate pain #30 tabs
amoxicillin 500 mg capsule 500 mg PO TID 14 days #42 caps 01/25/20 Unknown Rx
Active Medications
Generic Name Dose Route Start Last Admin
Trade Name Freq PRN Reason Stop Dose Admin
Bisacodyl 10 mg 01/07/25 16:52
Bisacodyl 10 Mg Rectal Suppository RECTAL 02/04/25 16:51
[id number] PRN
constipation
Folic Acid 1 mg 01/08/25 08:00 01/08/25 07:37
Folic Acid 1 Mg Tablet PO 02/05/25 07:59 1 mg
DAILY PAULO Administration
Sodium Bicarbonate 75 meq/ 1,075 mls @ 100 mls/hr 01/07/25 18:00 01/08/25 04:36
Sodium Chloride IV 1,075 mls
.[id number] PAULO Administration
Piperacillin Sod/Tazobactam Sod 3.375 gram in 50 mls @ 100 mls/hr 01/07/25 18:00 01/08/25 05:30
Zosyn IV 50 mls
Q6H PAULO Administration
Folic Acid 1 mg/ Sodium 50.2 mls @ 200.8 mls/hr 01/07/25 16:52
Chloride IV 02/04/25 16:51
DAILYPRN PRN
if NPO
Levothyroxine Sodium 100 mcg 01/08/25 06:00 01/08/25 07:18
Levothyroxine 100 Mcg Tablet PO 02/05/25 05:59 100 mcg
DAILY@0600 PAULO Administration
Miconazole Nitrate 0 applic 01/08/25 08:00 01/08/25 07:38
Miconazole Powder Bottle TOPICAL 02/05/25 07:59 1 applic
BID PAULO Administration
Phenobarbital Sodium 97.5 mg 01/07/25 22:00 01/08/25 07:37
Phenobarbital (65 Mg/Ml) 1 Ml Vial IV 01/09/25 16:01 97.5 mg
TID PAULO Administration
Phenobarbital Sodium 64.8 mg 01/09/25 22:00
Phenobarbital 32.4 Mg Tablet PO 01/11/25 16:01
TID PAULO
Phenobarbital Sodium 32.4 mg 01/11/25 22:00
Phenobarbital 32.4 Mg Tablet PO 01/13/25 16:01
TID PAULO
Polyethylene Glycol 17 grams 01/07/25 16:52
Polyethylene Glycol Powder 17 Grams Packet PO 02/04/25 16:51
DAILYPRN PRN
constipation
Senna/Docusate Sodium 1 tablet 01/07/25 16:52
Docusate W/Senna (Helga-Colace) Tablet PO 02/04/25 16:51
BIDPRN PRN
constipation
Sodium Chloride 0 flush 01/07/25 13:00
Sodium Chloride 0.9% (Flush) Syringe IV 02/04/25 12:59
PER PROTOCOL PAULO
Thiamine HCl 200 mg 01/07/25 16:52 01/08/25 07:37
Thiamine (100 Mg/Ml) 2 Ml Vial IV 01/10/25 08:01 200 mg
Q8 PAULO Administration
Thiamine HCl 100 mg 01/10/25 20:00
Thiamine 100 Mg Tablet PO 02/07/25 19:59
BID PAULO
Review of Systems
-
History Source: Patient
All Other Systems: Reviewed and Negative (other than fatigue)
Physical Exam
-
General: No Apparent Distress
HEENT: Moist Mucous Membranes
Cardiology: Normal Sinus Rhythm
Pulmonary: Clear
GI: Soft and Distended
Musculoskeletal: No Clubbing, No Cyanosis and No Edema
Extremities: No C/C/E
Neurology: Non Focal
Labs
Lab Results
WBC 4.2 10^3/uL (4.8-10.8) L 01/08/25 05:18
RBC 2.92 10^6/uL (4.70-6.10) L 01/08/25 05:18
Hgb 8.1 g/dL (13.0-18.0) L 01/08/25 05:18
Hct 23.0 % (39.0-52.0) L 01/08/25 05:18
MCV 78.8 fL (80.0-94.0) L 01/08/25 05:18
MCH 27.7 pg (27.0-31.0) 01/08/25 05:18
MCHC 35.2 g/dL (33.0-37.0) 01/08/25 05:18
RDW 19.1 % (11.5-14.5) H 01/08/25 05:18
Plt Count 27 10^3/uL (130-400) L* D 01/08/25 05:18
MPV Not Reportable 01/08/25 05:18
Abs Immat Gran (auto) 0.3 10^3/uL (0-0.05) H 01/07/25 12:02
Absolute Neuts (auto) 4.4 10^3/uL (1.4-6.5) 01/07/25 12:02
Absolute Lymphs (auto) 1.1 10^3/uL (1.2-3.4) L 01/07/25 12:02
Absolute Monos (auto) 0.8 10^3/uL (0.1-0.6) H 01/07/25 12:02
Absolute Eos (auto) 0.0 10^3/uL (0-0.7) 01/07/25 12:02
Absolute Basos (auto) 0.0 10^3/uL (0-0.2) 01/07/25 12:02
Immature Gran % 4.0 % (0-0.5) H 01/07/25 12:02
Neutrophils % 67.6 % (42.2-75.2) 01/07/25 12:02
Lymphocytes % 16.0 % (20.5-51.1) L 01/07/25 12:02
Monocytes % 12.0 % (1.7-9.3) H 01/07/25 12:02
Eosinophils % 0.2 % (0-6) 01/07/25 12:02
Basophils % 0.2 % (0-2) 01/07/25 12:02
Creatinine 1.3 mg/dL (0.7-1.3) 01/08/25 05:18
Vital Signs
Vital Signs
Temp Pulse Resp BP Pulse Ox
98.6 F 88 16 116/64 99
01/08/25 07:56 01/08/25 08:00 01/08/25 08:00 01/08/25 08:00 01/08/25 08:00
--- NOTE | 2025-01-08 09:28 | W.PN.NEPH.PH ---
Today's Communication / Plan
-
Convert IV fluids to saline
Assessment/Plan
-
Assessment
DANIEL
Pancytopenia
Metabolic acidosis, anion gap
Lactic acidosis
Hyponatremia
Alcohol use disorder
Hypotension
Failure to thrive
Fall
Pancolitis
Plan
Convert to saline IV fluids
Bladder scan no retention
Straight cath for urine studies
CT abdomen pelvis with colitis
Blood cultures pending
Check iron studies
Continue antibiotics empirically
Critical care time spent 31 minutes
-
-
Date of Service: January 08, 2025
CC / HPI / ROS
-
Chief Complaint:
DANIEL
History of Present Illness:
DANIEL/Cr down to 1.3
Lactic acid down to 2.2
Metabolic acidosis resolved
Sodium low stable 132
LFTs rising
Blood pressure improving but remains low stable
Little urine output
Lethargic but receiving phenobarbital and benzodiazepine for potential alcohol withdrawal
Critically ill in ICU
Review of Systems:
Lethargic
Labs
-
Labs:
WBC 4.2 10^3/uL (4.8-10.8) L 01/08/25 05:18
RBC 2.92 10^6/uL (4.70-6.10) L 01/08/25 05:18
Hgb 8.1 g/dL (13.0-18.0) L 01/08/25 05:18
Hct 23.0 % (39.0-52.0) L 01/08/25 05:18
Plt Count 27 10^3/uL (130-400) L* D 01/08/25 05:18
Sodium 132 mmol/L (135-145) L 01/08/25 05:18
Potassium 4.0 mmol/L (3.5-5.1) 06/08/25 05:18
Chloride 103 mmol/L (98-107) 01/08/25 05:18
Carbon Dioxide 22 mmol/L (22-30) 01/08/25 05:18
BUN 16 mg/dl (9-20) 01/08/25 05:18
Creatinine 1.3 mg/dL (0.7-1.3) 01/08/25 05:18
eGFR 54.51 01/08/25 05:18
Glucose 109 mg/dl (70-99) H 01/08/25 05:18
Calcium 7.6 mg/dl (8.4-10.2) L 01/08/25 05:18
Phosphorus Cancelled 01/07/25 13:31
Albumin 3.4 g/dl (3.5-5.0) L 01/08/25 05:18
Physical Exam
-
Vital Signs:
Vital Signs
Temp Pulse Resp BP Pulse Ox
98.6 F 88 16 116/64 99
01/08/25 07:56 01/08/25 08:00 01/08/25 08:00 01/08/25 08:00 01/08/25 08:00
Cardiovascular:: Regular rate and rhythm
Respiratory:: Bilateral: Coarse
Abdomen:: Nontender and Soft
Bowel Sounds:: Normal
Extremity Edema:: None: Bilateral:
--- NOTE | 2025-01-08 09:37 | W.PN.INTV ---
Addendum entered and electronically signed by Mark Smalls MD 01/08/25 18:24:
GI service recommendations reviewed.
-Steroids stopped for concern for colitis.
Original Note:
Today's Communication / Plan
Recommendations
- Start prednisone 40 mg daily
- Continue phenobarbital, discontinue lorazepam
- IV fluids switched to normal saline
- Daily liver function testing
Assessment
-
Patient is an 84-year-old gentleman with history of alcohol use disorder who stopped drinking about 2 days ago. Patient reports developing increasing weakness and lethargy and inability to get out of bed which prompted a call to emergency medical
service. Patient reportedly noted to have dizziness, hypotension and was incontinent of stool. In the emergency room workup included lactate level which was significantly elevated at 14. Patient also noted to have acute kidney injury. In view of
severe metabolic acidosis he was admitted to the ICU and blind escort consultation was requested.
#1. Hypotension with SIRS
- 88/48 on initial admission, quite improved
- Patient was quite volume depleted on admission. Status post 2.5 L bolus in the emergency room, followed by continuous IV hydration
- Chest x-ray unremarkable, CT suggestive of inflammatory or infectious pancolitis as well as hepatic steatosis.
- Blood cultures have been obtained. Otherwise patient is afebrile and has a normal white count.
- Responded well to fluid bolus, normotensive now without needing any pressors
- Check UA to evaluate for any urinary tract infection
- Continue broad-spectrum antibiotic vancomycin, Zosyn. If no growth noted in 48 hours, may discontinue antibiotics
#2. High anion gap metabolic acidosis with lactic acidosis
- Related to alcohol and starvation related ketosis with dehydration.
- Anion gap on admission was 27. Anion gap normal now
- Responded well to IV fluid resuscitation. After initial bolus, patient received isotonic bicarb infusion
- Lactate down to 2.2. Bicarb improved up to 22. Switch IV fluids to normal saline
#3. Acute kidney injury with mild hyponatremia
- Prerenal, responded well to IV fluid resuscitation
- Switch IV fluids to normal saline
#4. History of alcoholism with alcohol-related liver disease, suspect acute alcoholic hepatitis
- AST, ALT both uptrending
- Discriminant function calculated 01/08 was 31.1, with bilirubin of 2.4 and INR of 1.51. Will initiate 40 mg of prednisolone daily
- Alcohol level elevated at 135. Ketosis noted
- Continue IV hydration, continue thiamine, folic acid and multivitamin replacement
- At risk of alcohol withdrawal, monitor closely in the ICU
- Phenobarbital IV, MSAS. Avoid Lorazepam while receiving Phenobarb.
#5. Coagulopathy with thrombocytopenia
- 36,000 noted on lab work on admission, down to 27,000 today. No active bleeding noted
- Suspect related to underlying liver disease
-INR 1.51.
#6. History of GERD
- IV PPI for now
DVT prophylaxis. SCDs
Critical Care time 60 mins -- The patient is admitted for acute critical illness for the treatment of vital organ failure and/or prevention of further life-threatening conditions. Total care includes time spent in review of history, physical exam,
medications, hemodynamic/ventilator parameters, laboratory data, imaging and discussion with house staff, pharmacy, respiratory therapy, warranty administrator, and nursing.
Data:
Stress test 01/2022: Normal perfusion no fixed or reversible defects noted.
ECHO 12/2021: Normal left ventricular size, wall thickness and systolic function. No regional
wall motion abnormalities are seen. LV ejection fraction is 60-65%.
No significant valvular disease.
Compared to the previous echo from May 2019, there is no significant
change.
CXR 01/2025: Unremarkable
CT Abd/Pelvis 01/2025: 1. CT evidence for a moderate diffuse infectious or inflammatory pancolitis.
2. Severe hepatic steatosis.
3. Large hiatal hernia.
4. Other chronic findings, as above.
Subjective Dataa
Subjective Data
Date of Service:
Date of Service: January 08, 2025
Subjective:
Patient comfortably lying in bed, no acute distress, appears sedated however responds to stimulation
Review of Systems
Genitourinary: Other (No new symptoms reported)
Objective Data
Data Reviewed
Vital Signs / I&O / Oxygen:
Vital Signs
Temp Pulse Resp BP Pulse Ox
98.6 F 88 16 116/64 99
01/08/25 07:56 01/08/25 08:00 01/08/25 08:00 01/08/25 08:00 01/08/25 08:00
Intake and Output
01/07/25 01/08/25 01/09/25
06:59 06:59 06:59
Intake Total 2140 / 2240 200 / 200
Balance 2140 / 2240 200 / 200
SaO2 99
Nasal Cannula flow liters per 2
minute
Physical Exam
General: Comfortable
HEENT: Normocephalic
Cardiovascular: S1-S2
Respiratory: Clear and Non-Labored Respirations
GI: Soft
Neurology: Other (Drowsy but wakes up with little stimulation)
Skin: Warm
Labs/Micro/Reports
Lab Data
01/08/25 05:18
01/08/25 05:18
Laboratory Results
01/07/25 01/07/25 01/08/25
17:20 17:33 06:23
PT 19.0 H 18.5 H
INR 1.57 1.51
APTT 34.6
pH 7.22 L
pCO2 21 L
pO2 132 H
HCO3 8.6 L*
O2 Delivery Level 6l
[2025-01-08] MEDS: NSS 1000 IV ×2 (09:56→19:26)
[2025-01-08] MEDS: SOLU-MEDROL PF 40 MG IV (10:29)
--- NOTE | 2025-01-08 11:48 | PTCARENOTE ---
Pt sleeping when undisturbed, awakens briefly. Answers questions appropriately when awake. updated via phone. Urine studies sent.
[2025-01-08 11:56] LABS: Urine Albumin 1+ (Neg - Trace); Urine Bilirubin Negative (Negative); Urine Character Clear (Clear); Urine Color Yellow; Urine Glucose Negative (Negative); Urine Ketone Negative (Negative); Urine Leukocyte Negative (Negative); Urine Nitrite Negative (Negative); Urine Occult Blood 2+ (Negative); Urine Urobilinogen Negative (Neg - 1+)
[2025-01-08 12:00] LABS: Lactic Acid 1.9 mmol/L (0.7-2.0)
[2025-01-08 12:13] LABS: Amphetamines Negative (Negative); Barbiturates Positive (Negative); Benzodiazepines Positive (Negative); Buprenorphine Negative (Negative); Cocaine Negative (Negative); Marijuana Negative (Negative); Methadone Negative (Negative); Methamphetamines Negative (Negative); Opiates Negative (Negative); Phencyclidine Negative (Negative); Tricyclic Antidepressants Positive (Negative)
[2025-01-08 12:22] LABS: Urine Sodium < 5 mmol/L (30-90)
[2025-01-08 12:48] LABS: Fentanyl, Urine Negative (Negative)
--- NOTE | 2025-01-08 12:57 | PTCARENOTE ---
Pt more awake at this time. Sitting up in bed to eat lunch, forgetful to place, time and situation. Reoriented, pt cooperative.
--- NOTE | 2025-01-08 13:40 | CON.GI ---
Consultation
-
Date/Time Consultation Requested: 01/07/25 3pm
Date/Time Consultation Performed: 01/08/25 6am
Requesting Provider: rick
Performing Provider: ayala
Reason for Consultation: alcohol hepatitis
Medical History
Chief Complaint / HPI
Chief Complaint: alcohol liver disease
History of Present Illness:
84 y/o man with a hx of alcohol use who reportedly stopped drinking 2 days ago and had increasing weakness and lethargy. In ER dizzy, hypotensive with elevated lactate with metabolic acidosis. CT scan shows pancolitis, hiatal hernia. He has been
sedated and can't get any other information.
Review of his GI history shows multiple EGDs for hx of long segment barretts and hiatal hernia last one for surveillance in 2023. Two colonoscopies last one in 2020 for surveillance. He has diverticulosis and 2 small polyps.
Past Medical History
Past Medical History: Other (gerd, PUD, seizures, hypothyroidism, bph)
Past Surgical History: Urological
Social History
Tobacco: Non-Smoker
Alcohol: Chronic Alcoholic
Family History
Family History: Unable to Obtain
Allergies / Home Medications
Allergy/AdvReac Type Severity Reaction Status Date / Time
No Known Allergies Allergy Verified 01/29/22 13:28
�Medication �Instructions �Recorded
quetiapine 100 mg tablet 100 mg PO HS Mental Health/Anxiety 11/17/19
venlafaxine 37.5 mg 37.5 mg PO BID Mental 11/17/19
capsule,extended release 24 hr Health/Anxiety
(Effexor XR)
buspirone 10 mg tablet 20 mg PO DAILY Mental 12/02/19
Health/Anxiety
levothyroxine 100 mcg tablet 100 mcg PO DAILY Thyroid 12/02/19
quetiapine 25 mg tablet 50 mg PO BID Mental Health/Anxiety 12/02/19
trazodone 100 mg tablet 100 mg PO HS Mental Health/Anxiety 12/02/19
Prevagen 1 tab PO DAILY Supplement 01/21/20
omeprazole 10 mg capsule,delayed 40 mg PO DAILY Gastrointestinal 01/21/20
release (Prilosec) issue
acetaminophen 325 mg tablet 650 mg (2 x 325 mg) PO Q6HPRN PRN 01/25/20
moderate pain #30 tabs
amoxicillin 500 mg capsule 500 mg PO TID 14 days #42 caps 01/25/20
Review of Systems
-
Unable to obtain full review of systems at this time due to: Other (patient sedated)
Vital Signs
Temp Pulse Resp BP Pulse Ox
98.6 F 98 19 135/73 97
01/08/25 07:56 01/08/25 13:00 01/08/25 13:00 01/08/25 13:00 01/08/25 12:30
Physical Exam
Exam
General: Other (sedated)
HEENT: Anicteric
Cardiac: S1/S2
GI: Soft
Psych: Other (sedated)
Results
WBC 4.2 10^3/uL (4.8-10.8) L 01/08/25 05:18
Hgb 8.1 g/dL (13.0-18.0) L 01/08/25 05:18
Hct 23.0 % (39.0-52.0) L 01/08/25 05:18
MCV 78.8 fL (80.0-94.0) L 01/08/25 05:18
Plt Count 27 10^3/uL (130-400) L* D 01/08/25 05:18
Absolute Neuts (auto) 4.4 10^3/uL (1.4-6.5) 01/07/25 12:02
PT 18.5 Sec (11.4-14.6) H 01/08/25 06:23
INR 1.51 01/08/25 06:23
APTT 34.6 Sec (23.4-35.0) 01/07/25 17:33
Sodium 132 mmol/L (135-145) L 01/08/25 05:18
Potassium 4.0 mmol/L (3.5-5.1) 01/08/25 05:18
Chloride 103 mmol/L (98-107) 01/08/25 05:18
Carbon Dioxide 22 mmol/L (22-30) 01/08/25 05:18
BUN 16 mg/dl (9-20) 01/08/25 05:18
Creatinine 1.3 mg/dL (0.7-1.3) 01/08/25 05:18
Calcium 7.6 mg/dl (8.4-10.2) L 01/08/25 05:18
Total Bilirubin 2.4 mg/dl (0.2-1.3) H 01/08/25 05:18
AST 1229 U/L (17-59) H* 01/08/25 05:18
ALT 382 U/L (0-50) H 01/08/25 05:18
Alkaline Phosphatase 131 U/L (38-126) H 01/08/25 05:18
Assessment / Plan
-
This patient is a 84 y/o man with a hx of alcohol abuse, long segment barretts who was admitted with acidosis, lethargy and colitis by CT scan. His PT is stable and by his labs he may have had rhabdo with an elevated CK and an AST out of proportion
to ALT. I do not believe his underlying issue is alcholic hepatitis. For now:
- stool studies if diarrhea
- I would not use prednisone at this point as I do not believe his underlying condition is alcoholic hepatitis. i also worry about perforation as he has severe colitis with an acidosis and risk factors for PUD
- broad spectrum antibiotics
- supportive care with hydration
- follow PT which is stable
- alcohol abstinence
-IV PPI bid
Data Reviewed
-
Radiology: Report Reviewed by me
-
-
Thank you for consultation and allowing me to participate in the patient's care. Please call the ammunition supervisor GI physician during the after hours with any questions or concerns.
--- NOTE | 2025-01-08 17:05 | PTCARENOTE ---
Pt's in to visit this afternoon, updated. expressed that she wants him to go to rehab after the hospital but he told her that he won't go. Emotional support given. Pt alert and awake throughout afternoon, confused conversation at times. Pt
[facility] his [facility] arrived, when pt told he was in the hospital pt stated he didn't understand how he got food if he's not at a restaurant and asking how he is going to pay for his meal without money. Pt also had
stated that he thought a man was standing next to him in the room and he was talking to him for awhile, pt pointing to the IV pole, and then said 'until I realized it was whatever that is.' Safe environment maintained, bed alarm in place.
--- NOTE | 2025-01-08 19:36 | PTCARENOTE ---
Received patient drowsy, AAOx2, confused on time/month. Follows commands, forgetful, denies pain. Bed alarm on. NS 80s, BP stable 110s/60s. Weak pedal pulses b/l. On 2 liters nasal cannula, lung sounds diminished throughout. Abdomen soft, round,
nontender, positive bowel sounds, #[address] draining yellow urine. Scabs/bruises throughout extremities, MASD on groin area, desenex applied. PIVs patent, WNL. NSS ongoing per order. Call ott within reach, hourly rounding and patient
safety checks ongoing. Cannot verify vitals prior to 1900.
[2025-01-09] VITALS (22 sets, daily range): BP systolic 100–166; BP diastolic 67–96; PULSE 95–96; O2SAT 95–96; BMI 31.7
--- NOTE | 2025-01-09 | PTCARENOTE ---
Patient assessment unchanged from previous, call ott within reach.
--- NOTE | 2025-01-09 04:35 | PTCARENOTE ---
Patient assessment unchanged from previous, call ott within reach.
[2025-01-09] MEDS: ZOSYN 50 IV ×4 (05:59→23:12)
[2025-01-09] MEDS: SYNTHROID 100 MCG PO (05:59)
[2025-01-09] MEDS: NSS 1000 IV (06:00)
--- NOTE | 2025-01-09 08:00 | W.PN.HOSP.TC ---
Today's Communication/Plan
-
PT/OT
Obtain home medication list
Assessment / Plan
Assessment / Plan
Gen-AAOx3, NAD
HEENT-NC, AT, anicteric, clear oral mm
Neck-supple
CV-reg, no M, +S1/S2
Lungs-clear B/L
Abd-soft, NT, ND
Ext-no edema
Musculoskeletal-no cyanosis, clubbing
Skin-warm and dry
Neuro-grossly non-focal
Psych-calm, cooperative
Hypovolemic shock -present on admission. Improved with IV fluids.
Hypothermia -present on admission, resolved. Doubt sepsis. Currently on empiric IV Zosyn, blood cultures negative so far. No evidence of UTI. Low threshold to discontinue antibiotics.
Anion Gap Metabolic Acidosis - from alcohol, dehydration, starvation, lactic acidosis
Lactic Acidosis
- Anion gap resolved after initial IV bolus followed by isotonic bicarb infusion
DANIEL -due to volume depletion.
- Improving with IV fluids
Mild Hyponatremia - Suspected hypovolemic
- Continue IV fluids
Alcohol Use Disorder -alcohol level 135 on admission. Therefore, unlikely that his last drink was 2 days prior to presentation as he stated in the emergency room. He states he drinks half a bottle wine daily, I suspect it is probably more. He
states he drinks alcohol to help him sleep. I discussed with him that alcohol actually interferes with sleep. Also takes trazodone and quetiapine for sleep with little benefit. Recommend psychiatry follow-up. Recommend rehab on discharge.
Alcoholic Hepatitis -LFTs pending for today. GI does not recommend using steroids, in fact they are not concerned about alcoholic hepatitis. Currently on IV Solu-Medrol for unclear reasons, defer to goods layer.
- Continue Phenobarb taper
- Continue MSAS protocol
- Continue IV fluids, vitamins
Pancytopenia -suspect due to alcohol abuse. CBC pending.
HX GERD
History of peptic ulcer disease
- on OP PO PPI - continue IV PPI daily
Hypothyroidism
- Pending Rx reconciliation (levothyroxine 100 mcg is listed )
Depression and Anxiety
- Pending Rx reconciliation ( quetiapine + venlafaxine + buspirone + trazodone are listed)
Full code
PT/OT
Anticipated Discharge: > 48 hours
Subjective/Interval History
-
Date of Service: January 09, 2025
Patient seen and examined. No complaints.
Objective Data
-
Labs:
Laboratory Results
01/09/25
06:00
WBC Pending
Hgb Pending
Hct Pending
Plt Count Pending
PT Pending
INR Pending
Sodium Pending
Potassium Pending
Chloride Pending
Carbon Dioxide Pending
BUN Pending
Creatinine Pending
Glucose Pending
Calcium Pending
Total Bilirubin Pending
AST Pending
ALT Pending
Alkaline Phosphatase Pending
Vital Signs:
Vital Signs
Temp Pulse Resp BP Pulse Ox
97.9 F 89 24 152/69 97
01/09/25 00:30 01/09/25 07:00 01/09/25 07:00 01/09/25 07:00 01/09/25 07:00
I&O
01/08/25 01/09/25 01/10/25
06:59 06:59 06:59
Intake Total 2140 / 2240 3050 / 3200 150 / 150
Output Total 1350 / 1350
Balance 2140 / 2240 1700 / 1850 150 / 150
Review of Systems
-
History Source: Patient
All other systems: Reviewed and negative
--- NOTE | 2025-01-09 08:27 | W.PN.INTV ---
Today's Communication / Plan
Recommendations
Stop steroids today
Continue phenobarbital
Thiamine
Trend LFTs + T. bili
Stop IVF and encourage PO intake
Stop antibiotics tomorrow as there is little concern for an infection (retrocardiac opacification due to atelectasis from large hiatal hernia)
He should follow-up with GI as an outpatient especially in the setting of his hiatal hernia and severe hepatic steatosis; most important thing he can do going forward though is to stop drinking EtOH
BCARES consult
Patient is stable for downgrade out of ICU to telemetry. No additional recommendations at this time. Administrative Services Coordinator/Pulmonary service will now sign off. Please reconsult if there are any additional questions/concerns, or if patient's respiratory
status deteriorates.
Assessment
-
Patient is an 84-year-old gentleman with history of alcohol use disorder who stopped drinking about 2 days ago. Patient reports developing increasing weakness and lethargy and inability to get out of bed which prompted a call to emergency medical
service. Patient reportedly noted to have dizziness, hypotension and was incontinent of stool. In the emergency room workup included lactate level which was significantly elevated at 14. Patient also noted to have acute kidney injury. In view of
severe metabolic acidosis he was admitted to the ICU and yard coordinator consultation was requested.
#1. Hypotension due to hypovolemia in the setting of alcohol use
- 88/48 on initial admission, quite improved
- Patient was quite volume depleted on admission. Status post 2.5 L bolus in the emergency room, followed by continuous IV hydration
- Chest x-ray unremarkable, CT A/P suggestive of inflammatory or infectious pancolitis as well as severe hepatic steatosis.
- Blood cultures have been obtained. Otherwise patient is afebrile and has a normal white count.
- Responded well to fluid bolus, normotensive now without needing any pressors
- UA shows no convincing evidence for UTI
- Currently on Zosyn s/p IV vancomycin given on 01/07 --> would stop ABx tomorrow assuming he continues to remain afebrile
#2. High anion gap metabolic acidosis with lactic acidosis
- Related to alcohol and starvation related ketosis with dehydration.
- Anion gap on admission was 27. Anion gap normal now
- Responded well to IV fluid resuscitation. After initial bolus, patient received isotonic bicarb infusion
- Lactate now 1.9 as of yesterday, bicarb now normal at 24. No need to continue trending lactate, and no need for continued IV fluids. Encourage p.o.
#3. Acute kidney injury with mild hyponatremia
- Prerenal, responded well to IV fluid resuscitation
- Creatinine now normal; continue to monitor
#4. History of alcoholism with alcohol-related liver disease
- Continue to trend LFts + T bili
- Discriminant function calculated 01/08 was 31.1, with bilirubin of 2.4 and INR of 1.51. Dr. Smalls initiated 40 mg of prednisolone daily
- GI recommended to stop prednisolone as they had low suspicion for alcoholic hepatitis and there was concern for perforation in the setting of his pancolitis. Steroids stopped today by me
- Alcohol level elevated at 135. Ketosis noted
- Continue thiamine, folic acid and multivitamin replacement
- At risk of alcohol withdrawal, continue with phenobarbital protocol
- Consult BCARES
#5. Thrombocytopenia
- Was as low as 27K yesterday, now today improved to 32k
- No active bleeding
- Suspect related to underlying liver disease
- INR 1.36 today
- Transfuse platelets if platelet count gets as low as 10�20k, although keep >50 K if there is active bleeding seen
#6. History of GERD
- Continue to monitor; med rec completed and there does not appear to be a PPI that he takes at home. If symptoms develop then we can always initiate treatment at that time
DVT prophylaxis. SCDs given the significant thrombocytopenia
Patient is stable for downgrade out of ICU to telemetry. No additional recommendations at this time. Administrative Services Coordinator/Pulmonary service will now sign off. Thank you for allowing us to be involved in the care of this patient. Please reconsult if there
are any additional questions/concerns, or if patient's respiratory status deteriorates.
Data:
Stress test 01/2022: Normal perfusion no fixed or reversible defects noted.
ECHO 12/2021: Normal left ventricular size, wall thickness and systolic function. No regional
wall motion abnormalities are seen. LV ejection fraction is 60-65%.
No significant valvular disease.
Compared to the previous echo from May 2019, there is no significant
change.
CXR 01/2025: Unremarkable
CT Abd/Pelvis 01/2025: 1. CT evidence for a moderate diffuse infectious or inflammatory pancolitis.
2. Severe hepatic steatosis.
3. Large hiatal hernia.
4. Other chronic findings, as above.
Total time spent today was 58 minutes for this encounter. Time includes reviewing laboratory test/imaging results, reviewing pertinent medical records, obtaining and reviewing medical history, performing an appropriate exam, ordering medications,
tests and procedures. Time also includes documentation of this encounter, coordinating patient care and communicating with other healthcare professionals. Total time does not include separately billed tests performed on this date of service.
Subjective Dataa
Subjective Data
Date of Service:
Date of Service: January 09, 2025
Chief Complaint: Administrative Services Coordinator Follow Up
Subjective:
Patient seen and evaluated this morning. Heart rate 101, BP 100/67, saturating 95% on room air. He keeps calling out for his . He otherwise feels okay, denying chest pain, QUINONES, nausea, fevers or chills. He is confused at times. Patient has
mild swelling in his right forearm although it is non-pitting, with good color of his right upper extremity and patient does not endorse any pain to palpation.
Review of Systems
General: Other (Negative unless mentioned above)
Objective Data
Data Reviewed
Vital Signs / I&O / Oxygen:
Vital Signs
Temp Pulse Resp BP Pulse Ox
97.7 F 90 22 160/80 97
01/09/25 08:11 01/09/25 08:00 01/09/25 08:00 01/09/25 08:00 01/09/25 08:00
Intake and Output
01/08/25 01/09/25 01/10/25
06:59 06:59 06:59
Intake Total 2140 / 2240 3050 / 3200 250 / 250
Output Total 1350 / 1350
Balance 2140 / 2240 1700 / 1850 250 / 250
SaO2 97
Nasal Cannula flow liters per 2
minute
Physical Exam
General: Respiratory Distress (negative), Comfortable, Chills (negative) and Sweats (negative)
HEENT: Normocephalic and Anicteric
Cardiovascular: S1-S2, Rub (negative) and Peripheral Edema (negative)
Respiratory: Clear, Wheeze (n), Crackles (n), Rhonchi (n), Non-Labored Respirations and Stridor (negative)
GI: Soft, Non Distended, Non Tender and Normal Bowel Sounds
Neurology: Awake, Alert and Tremors (negative)
Skin: Warm, Dry, Cyanosis (negative) and Jaundice (negative)
Labs/Micro/Reports
Lab Data
01/09/25 08:08
Laboratory Results
01/09/25
08:08
PT 17.1 H
INR 1.36
Microbiology
01/07/25 18:26 Nose MRSA Screen - Final
No growth
01/07/25 12:27 Blood/Venous Blood Culture - Preliminary
No Growth in 24 hours- Final report to follow
01/07/25 12:27 Blood/Venous Blood Culture - Preliminary
No Growth in 24 hours- Final report to follow
[2025-01-09 08:29] LABS: % Basophils 0.2 % (0-2); % Eosinophils 0.2 % (0-6); % Immature Granulocytes 2.3 % (0-0.5); % Lymphocytes 14.1 % (20.5-51.1); % Neutrophils 78.2 % (42.2-75.2); Absolute Immature Granulocytes 0.1 10^3/uL (0-0.05); Absolute Lymphocytes 0.8 10^3/uL (1.2-3.4); Absolute Monocytes 0.3 10^3/uL (0.1-0.6); Absolute Neutrophils 4.7 10^3/uL (1.4-6.5); Hematocrit 25.7 % (39.0-52.0); Hemoglobin 8.5 g/dL (13.0-18.0); Mean Corp Hgb Conc. 33.1 g/dL (33.0-37.0); Mean Corpuscular Volume 81.6 fL (80.0-94.0); Nucleated Red Blood Cells % 0.5 % (-); Platelet Count 32 10^3/uL (130-400); Red Blood Cell Count 3.15 10^6/uL (4.70-6.10)
[2025-01-09 08:33] LABS: INR 1.36; PT 17.1 Sec (11.4-14.6)
--- NOTE | 2025-01-09 08:35 | W.PN.NEPH.PH ---
Today's Communication / Plan
-
Sign off
Assessment/Plan
-
Assessment
DANIEL
Pancytopenia
Metabolic acidosis, anion gap
Lactic acidosis
Hyponatremia
Alcohol use disorder
Hypotension
Failure to thrive
Fall
Pancolitis
Plan
DANIEL resolved
Grossly nonoliguric
Electrolytes balanced
Hemodynamically stable
We will sign
-
-
Date of Service: January 09, 2025
CC / HPI / ROS
-
Chief Complaint:
DANILE
History of Present Illness:
DANIEL/Cr resolved
Metabolic acidosis resolved
Sodium 130s
Hemodynamically stable
Nonoliguric
Review of Systems:
Awake and alert
No reported chest pain or shortness of
Labs
-
Labs:
WBC 6.0 10^3/uL (4.8-10.8) 01/09/25 08:08
RBC 3.15 10^6/uL (4.70-6.10) L 01/09/25 08:08
Hgb 8.5 g/dL (13.0-18.0) L 01/09/25 08:08
Hct 25.7 % (39.0-52.0) L 01/09/25 08:08
Plt Count 32 10^3/uL (130-400) L 01/09/25 08:08
eGFR 54.51 01/08/25 05:18
Phosphorus Cancelled 01/07/25 13:31
Physical Exam
-
Vital Signs:
Vital Signs
Temp Pulse Resp BP Pulse Ox
97.7 F 89 24 152/69 97
01/09/25 08:11 01/09/25 07:00 01/09/25 07:00 01/09/25 07:00 01/09/25 07:00
Cardiovascular:: Regular rate and rhythm
Respiratory:: Bilateral: Coarse
Abdomen:: Nontender and Soft
Bowel Sounds:: Normal
Extremity Edema:: None: Bilateral:
Saldivar Catheter: No
[2025-01-09] MEDS: DESENEX/MITRAZOL/ZEASORB 1 APPLIC TOPICAL ×2 (08:38→21:02)
[2025-01-09] MEDS: FOLVITE 1 MG PO (08:38)
[2025-01-09] MEDS: THIAMINE INJECTION 200 MG IV ×3 (08:48→23:08)
[2025-01-09] MEDS: PHENOBARBITAL 97.5 MG IV ×2 (08:48→16:12)
[2025-01-09 08:59] LABS: ALT (SGPT) 291 U/L (0-50); AST (SGOT) 557 U/L (17-59); Albumin 3.5 g/dl (3.5-5.0); Alkaline Phosphatase 131 U/L (38-126); Blood Urea Nitrogen 15 mg/dl (9-20); Calcium 8.2 mg/dl (8.4-10.2); Carbon Dioxide 24 mmol/L (22-30); Chloride 104 mmol/L (98-107); Estimated Creatinine Clearance 67 ml/min; Glucose 106 mg/dl (70-99); Magnesium 1.8 mg/dl (1.6-2.3); Potassium 3.6 mmol/L (3.5-5.1); Sodium 137 mmol/L (135-145); Total Bilirubin 1.4 mg/dl (0.2-1.3); Total Protein 7.1 g/dl (6.3-8.2); eGFR > 60.00
[2025-01-09] MEDS: SOLU-MEDROL PF IV (11:27)
--- NOTE | 2025-01-09 11:39 | PTCARENOTE ---
Patient downgraded to tele level. VSS. Family at bedside.
--- NOTE | 2025-01-09 12:33 | PTCARENOTE ---
Rec'd care of patient at 0700. Patient alert and oriented. Forgetful at times. MAEx4. NSR/ST on tele. Rate in the 90-100's. Pulse ox 97% on RA upon start of shift. Weaned to RA. Lung sounds diminished throughout with bibasilar crackles. +BS.
Appetite good. Tolerating regular diet. Incontinent of soft brown bm. CC in place for urinary incontinence. CHG bath performed. Calazime ointment and desenex powder applied to masd in vandana area/groin. Right hand INT found to be infiltrated at start
of shift. Patient previously received Zosyn through site. VAT notified. Site removed. Arm elevated and RN instructed to alternate between heat and ice. Edema improved from prior assessments. Patient assisted oob to chair x1 RW by PT/OT. Chair alarm
on.
--- NOTE | 2025-01-09 12:34 | CM ---
Initial assessment completed with patient with , son and grandson in the room. 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 Patient claims he was independent in ambulation and
ADL's. He has 2 RW and a SPC. He uses the SPC. Family said he is not independent in ADL's due to his ETOH abuse. His hygiene is poor. He does not drive. No in-home services. No psychiatric hospitalizations. Has been to [facility] and
[facility] for ETOH abuse in the past. He does have HC-POA and has been in the [employer]. PCP is Dr. Head and Pharmacy is [facility] [place]. Discharge POC: Alejandro has been consulted for placement to ETOH rehab.
--- NOTE | 2025-01-09 13:28 | W.PN.GI.CBS2 ---
Addendum entered and electronically signed by Polina Hunter MD 01/09/25 14:14:
I saw and examined the patient.
The WOOD FORM BUILDER or PA's note was reviewed and I agree with the note.
Comment:
Pt doing markedly better, oriented, no diarrhea
oriented
impression:
rhabdo, shock liver resolving
hx of alcohol abuse
pancolitis on ct w/o diarrhea
plan:
no evidence of alcohol hepatitis; steroids stopped
PPI
alcohol cessagtion
lfts improving
f/u with Dr Cline as outpatient
will sign off call with questions
Original Note:
Today's Communication / Plan
-
As per plan
Assessment / Plan
-
This patient is a 84 y/o man with a hx of alcohol abuse, long segment barretts who was admitted with acidosis, lethargy and colitis by CT scan. His PT and LFTs are improving, differentials include rhabdo with an elevated CK and an AST out of
proportion to ALT, patient also had acute episode of hypotension with tachycardia on admission now resolved, patient had an elevated alcohol level on admission therefore acute alcoholic hepatitis less likely.
Impression/Plan:
History of cirrhosis secondary to alcohol use, diagnosed in 2023 with FibroScan as well as ultrasound imaging. Had thrombocytopenia since that time.
Elevated LFTs
-> AST greater than ALT in a 2-1 proportion, improving
-> Also in the setting of patient with falls, lying in bed, severe hypotension and tachycardia with elevated lactate and severe metabolic acidosis now resolved
-> Positive alcohol level on arrival
-> Steroids have now been stopped
-> EtOH cessation advised
-> Patient states that he has been having issues with walking recently, balance issues. Has been using a walker and going to PT as an outpatient. Stating he has had frequent falls. ? EtOH
- Patient will need to follow-up with Dr. Cline as an outpatient
- Continue to trend LFTs/CBC/INR
High anion gap metabolic acidosis with lactic acidosis
-> As per internal medicine/pulm crit
Pancolitis seen on imaging
-> Patient does tell me today that he took Pepto-Bismol a week or so prior to admission. Then took something to help him have a bowel movement.
-> Does not have a history of chronic diarrhea. Up-to-date with colonoscopy.
-> Tolerating solid diet. Had soft formed bowel movement today with nursing.
Long segment Kelly's esophagus/hiatal hernia
-Continue pantoprazole IV twice daily
Subjective
Subjective
Date of Service: January 09, 2025
Patient eating and drinking without any difficulty. Had a soft bowel movement. Discussed with RN. No signs of diarrhea. Hemoglobin stable 8.5, platelets stable at 36, INR 1.36 (down from 1.51), BUN and creatinine within normal limits. Total
bilirubin 1.4 down from 2.4, AST 557 down from 1229, ALT 291 down from 382, alk phos 131 same at 131.
Objective
Data Reviewed
Laboratory Data:
Laboratory Results
01/09/25 08:08
01/09/25 08:08
Laboratory Results
PT 17.1 Sec (11.4-14.6) H 01/09/25 08:08
INR 1.36 01/09/25 08:08
APTT 34.6 Sec (23.4-35.0) 01/07/25 17:33
Phosphorus Cancelled 01/07/25 13:31
Magnesium 1.8 mg/dl (1.6-2.3) 01/09/25 08:08
Total Bilirubin 1.4 mg/dl (0.2-1.3) H D 01/09/25 08:08
AST 557 U/L (17-59) H* 01/09/25 08:08
ALT 291 U/L (0-50) H 01/09/25 08:08
Alkaline Phosphatase 131 U/L (38-126) H 01/09/25 08:08
Vital Signs and I&O:
Vital Signs
Temp Pulse Resp BP Pulse Ox
97.8 F 98 25 147/82 93
01/09/25 11:24 01/09/25 13:00 01/09/25 13:00 01/09/25 13:00 01/09/25 13:00
I&O
01/08/25 01/09/25 01/10/25
06:59 06:59 06:59
Intake Total 2140 / 2240 3050 / 3200 640 / 640
Output Total 1350 / 1350
Balance 2140 / 2240 1700 / 1850 640 / 640
Physical Exam
Physical Exam
HEENT: Anicteric
Cardiology: Normal Sinus Rhythm
Pulmonary: Clear (Anterior)
GI: Soft, Non Distended, Non Tender and Normal Bowel Sounds
Neuro: Non Focal
--- NOTE | 2025-01-09 13:52 | TRANSFER ---
Patient transported with belongings to 3W via wheelchair. Ambulated from chair to [place]inez with RW. VSS.
[2025-01-09] MEDS: LUMINAL 64.8 MG PO (21:02)
[2025-01-09] MEDS: ROBITUSSIN 100 MG PO (23:12)
[2025-01-10] VITALS (7 sets, daily range): BP systolic 144–175; BP diastolic 69–99; BMI 32.1
[2025-01-10] MEDS: ATIVAN 1 MG IV ×2 (04:10→06:53)
[2025-01-10] MEDS: NSS (PRESERVATIVE FREE) 0.5 ML IV ×2 (04:10→06:53)
--- NOTE | 2025-01-10 04:15 | PTCARENOTE ---
Pt restless in bed, setting off bed alarm. Pt said to staff, 'I would like to leave this place because you are making me sit on cardboard instead of using the bathroom. I don't like how you run this establishment.' Pt also frequently asking staff
about who to pay for his hospital stay. Also, mentioned that his was in the room and began asking for her. Disoriented to time and place. MSAS score of 8. No PRN ativan ordered for MSAS. LOLLY Garg notified. Orders placed. Refer to
MAR. Plan of care ongoing.
[2025-01-10] MEDS: ZOSYN 50 IV (05:18)
[2025-01-10] MEDS: SYNTHROID 100 MCG PO (05:18)
[2025-01-10 06:18] LABS: INR 1.44; PT 17.8 Sec (11.4-14.6)
[2025-01-10 06:22] LABS: Hematocrit 24.6 % (39.0-52.0); Hemoglobin 8.4 g/dL (13.0-18.0); Mean Corp Hgb Conc. 34.1 g/dL (33.0-37.0); Mean Corpuscular Hgb 27.9 pg (27.0-31.0); Mean Corpuscular Volume 81.7 fL (80.0-94.0); Mean Platelet Volume 11.2 fL (7.4-10.4); Platelet Count 32 10^3/uL (130-400); Red Blood Cell Count 3.01 10^6/uL (4.70-6.10); Red Cell Dist. Width 20.4 % (11.5-14.5); White Blood Cell Count 3.7 10^3/uL (4.8-10.8)
[2025-01-10 06:35] LABS: ALT (SGPT) 222 U/L (0-50); AST (SGOT) 345 U/L (17-59); Albumin 3.2 g/dl (3.5-5.0); Alkaline Phosphatase 136 U/L (38-126); Blood Urea Nitrogen 14 mg/dl (9-20); Carbon Dioxide 23 mmol/L (22-30); Chloride 105 mmol/L (98-107); Estimated Creatinine Clearance 76 ml/min; Glucose 102 mg/dl (70-99); Magnesium 1.6 mg/dl (1.6-2.3); Phosphorus 1.6 mg/dl (2.5-4.5); Potassium 3.5 mmol/L (3.5-5.1); Sodium 134 mmol/L (135-145); Total Bilirubin 1.5 mg/dl (0.2-1.3); Total Protein 6.5 g/dl (6.3-8.2); eGFR > 60.00
[2025-01-10 08:21] LABS: % Basophils 0.3 % (0-2); % Eosinophils 0.5 % (0-6); % Immature Granulocytes 5.4 % (0-0.5); % Monocytes 7.4 % (1.7-9.3); % Neutrophils 65.4 % (42.2-75.2); Absolute Immature Granulocytes 0.2 10^3/uL (0-0.05); Absolute Lymphocytes 0.8 10^3/uL (1.2-3.4); Absolute Monocytes 0.3 10^3/uL (0.1-0.6); Absolute Neutrophils 2.4 10^3/uL (1.4-6.5); Nucleated Red Blood Cells % 0.5 % (-)
[2025-01-10] MEDS: LUMINAL 64.8 MG PO ×3 (08:32→21:33)
[2025-01-10] MEDS: FOLVITE 1 MG PO (08:33)
[2025-01-10] MEDS: THIAMINE INJECTION 200 MG IV (08:33)
[2025-01-10] MEDS: DESENEX/MITRAZOL/ZEASORB 1 APPLIC TOPICAL ×2 (08:34→20:20)
--- NOTE | 2025-01-10 08:51 | W.PN.HOSP.TC ---
Addendum entered and electronically signed by Elio Barcenas DO 01/10/25 11:51:
Acute delirium due to alcohol withdrawal syndrome
SIRS with organ dysfunction characterized by DANIEL
Original Note:
Today's Communication/Plan
-
Psychiatry consult
replete potassium
Replete phosphate
Assessment / Plan
Assessment / Plan
Gen-awake, alert, NAD
HEENT-NC, AT, anicteric, clear oral mm
Neck-supple
CV-reg, no M, +S1/S2
Lungs-clear B/L
Abd-soft, NT, ND
Ext-no edema
Musculoskeletal-no cyanosis, clubbing
Skin-warm and dry
Neuro-grossly non-focal
Psych-calm, cooperative
Alcohol withdrawal syndrome -as needed lorazepam resumed. Continue phenobarbital taper. Continue thiamine, folic acid.
Hypovolemic shock -present on admission. Improved with IV fluids.
Hypothermia -present on admission, resolved. Doubt sepsis. Blood cultures negative. No evidence of UTI. Discontinue further antibiotics.
Anion Gap Metabolic Acidosis - from alcohol, dehydration, starvation, lactic acidosis
Lactic Acidosis
- Anion gap resolved after initial IV bolus followed by isotonic bicarb infusion
DANIEL -due to volume depletion.
- Improving with IV fluids
Mild Hyponatremia - Suspected hypovolemic
- Continue IV fluids
Hypophosphatemia -will replete.
Alcohol Use Disorder -alcohol level 135 on admission. Therefore, unlikely that his last drink was 2 days prior to presentation as he stated in the emergency room. He states he drinks half a bottle wine daily, I suspect it is probably more. He
states he drinks alcohol to help him sleep. I discussed with him that alcohol actually interferes with sleep. Also takes trazodone and quetiapine for sleep with little benefit. Recommend psychiatry follow-up. Recommend rehab on discharge.
Alcoholic Hepatitis -LFTs pending for today. GI does not recommend using steroids, in fact they are not concerned about alcoholic hepatitis. Steroids discontinued.
Pancytopenia -suspect due to alcohol abuse. Counts are stable.
HX GERD
History of peptic ulcer disease
- on OP PO PPI - continue IV PPI daily
Hypothyroidism
- Pending Rx reconciliation (levothyroxine 100 mcg is listed )
Depression and Anxiety -he is on quetiapine and trazodone at bedtime for sleep. Consult psychiatry.
Full code
Dispo -anticipate discharge to inpatient alcohol rehab versus SNF.
Anticipated Discharge: > 48 hours
Subjective/Interval History
-
Date of Service: January 10, 2025
Patient seen and examined. No complaints.
Objective Data
-
Labs:
Laboratory Results
01/10/25
05:47
WBC 3.7 L
Hgb 8.4 L
Hct 24.6 L
Plt Count 32 L
PT 17.8 H
INR 1.44
Sodium 134 L
Potassium 3.5
Chloride 105
Carbon Dioxide 23
BUN 14
Creatinine 0.8
Glucose 102 H
Calcium 8.0 L
Total Bilirubin 1.5 H
AST 345 H
ALT 222 H
Alkaline Phosphatase 136 H
Vital Signs:
Vital Signs
Temp Pulse Resp BP Pulse Ox
97.8 F 92 16 144/76 95
01/10/25 07:00 01/10/25 08:30 01/10/25 07:00 01/10/25 08:30 01/10/25 07:00
I&O
01/09/25 01/10/25 01/11/25
06:59 06:59 06:59
Intake Total 3050 / 3200 1600 / 1600
Output Total 1350 / 1350 800 / 800
Balance 1700 / 1850 800 / 800
Review of Systems
-
History Source: Patient
All other systems: Reviewed and negative
[2025-01-10] MEDS: SODIUM PHOSPHATE 255 MEQ IV (09:44)
[2025-01-10] MEDS: KCL 40 MEQ PO (09:49)
[2025-01-10] MEDS: NEUTRA-PHOS POWDER PACKET 250 MG PO ×4 (09:49→21:33)
--- NOTE | 2025-01-10 10:04 | PN.CDI ---
CDI
- -
CDI:
Physician Documentation Request
Admit Date: 01/07/25 14:21
Dear Doctor,
Please review the following and provide your response in the progress notes.
Clinical Indicators:
Pt admitted for Hypovolemic shock, acidosis, and DANIEL.
01/08 RN Note: 'Pt alert and awake throughout afternoon, confused conversation at times. Pt asking if he's at [facility] when his dinner arrived, when pt told he was in the hospital pt stated he didn't understand how he got food if he's not at
a restaurant and asking how he is going to pay for his meal without money. Pt also had stated that he thought a man was standing next to him in the room and he was talking to him for awhile, pt pointing to the IV pole, and then said 'until I
realized it was whatever that is.'
01/09 Prime Broker: 'He is confused at times.'
01/10 RN: ' Pt restless in bed, setting off bed alarm. Pt said to staff, 'I would like to leave this place because you are making me sit on cardboard instead of using the bathroom.'
Based on the above, could you clarify in the Progress Notes and Discharge Summary which, if any of the following, is the most likely etiology of the confusion/altered mental status.
Encephalopathy - (indicate type, such as metabolic, toxic, alcoholic) etc. due to a specific condition such as UTI, CVA, hyponatremia etc.
Acute Delirium - indicate known or suspected etiology such as postoperative, due to opioids or other drugs etc. Can also indicate unknown or mixed etiologies.
Confusion only
Other
Use of terms such as suspected, likely, concern for, or probable (associated with a specific diagnosis that is being evaluated, monitored, or treated as if it exists) are acceptable and can be coded in the inpatient setting, when documented at the
time of discharge.
Thank you,
Yokasta Sanchez RN, BSN
CDI Specialist
[place] [facility]
Please use your independent medical judgment in providing your response.
--- NOTE | 2025-01-10 10:32 | PN.CDI ---
CDI
- -
CDI:
Physician Documentation Request
Admit Date: 01/07/25 14:21
Dear Doctor Melissa,
Please review the following and provide your response in the progress notes.
Clinical Indicators:
Pt admitted for hypotension, acidosis, and DANIEL.
01/08 Progress note: ' Presentation SIRS picture (Hypothermic, tachycardic, Hypotensive)'
Laboratory Tests
01/07/25 01/08/25 01/09/25
12:02 05:18 08:08
Creatinine 1.5 H 1.3
AST 175 H 1229 H* 557 H*
ALT 82 H 382 H 291 H
Based on the above, could you clarify in the progress notes, the appropriate diagnosis, if significant, that supports the above abnormalities and additional evaluation, monitoring and/or treatment rendered:
SIRS with organ dysfunction.
SIRS without organ dysfunction
Other
Use of terms such as suspected, likely, concern for, or probable (associated with a specific diagnosis that is being evaluated, monitored, or treated as if it exists) are acceptable and can be coded in the inpatient setting, when documented at the
time of discharge.
Thank you,
Yokasta Sanchez RN, BSN
CDI Specialist
[place] [facility]
Please use your independent medical judgment in providing your response.
--- NOTE | 2025-01-10 10:59 | CS.PSYCHR ---
Consult Summary - Psychiatry
-
Pt is an 84 yo male with hx of ETOH use disorder, hx of ETOH W/D Sz, GERD, PUD, who presented with increasing weakness, called EMS. Pt was planning to go to [place], reportedly changed his mind. Pt's last drink noted 2 days SUPERVISOR PERSONNEL CLERKS. Pt on
Phenobarb taper, MSAS protocol, noted with incontinence, forgetfulness. Pt has significant lab abnormalities: elevated liver enzymes, very low platelets, low Hgb. Sodium slightly low- 134. Psychiatry asked to eval pt's sleep medications-
Seroquel and Trazodone. Pt seen resting in bed, alert, calm, cooperative, though somewhat disoriented. Pt called for his , though she was not present. When asked about plans regarding alcohol rehab, he stated 'I am in rehab.'
Psych Hx: none noted other than above medications; pt unable to provide further info
Hx of [facility], [place] and [place] alcohol rehab in the past
SH: lives with family, per case mgt- pt does not drive, not attending to ADL's due to alcohol use
MSE: alert, , calm, making eye contact, answering questions, though giving little clear information/rambling. Partially oriented, sensorium appears mildly impaired. Mood/ affect stable. Pt denies need for psychiatric care. Insight appears
limited.
Imp: Alcohol Use d/o, severe. Appears to have mild delirium from multiple factors
Pt noted on Trazodone and Seroquel for insomnia at home. Seroquel is not be the best option given pt's lab findings and potential lowering of seizure threshold
Rec: continue on Phenobarb and MSAS protocols; Agree with holding off Seroquel; resume Trazodone and melatonin
Will follow
--- NOTE | 2025-01-10 13:45 | PTCARENOTE ---
Pt's BP elevated 170/94 HR 97 on monitor. MD notified via TT. BP rechecked and continues to be elevated 188/107 HR 90 on the monitor. MD made aware. No new orders at this time. Plan of care ongoing.
[2025-01-10] MEDS: ATIVAN 1 MG PO (14:24)
--- NOTE | 2025-01-10 15:42 | PTOTSP ---
Dysphagia Evaluation
Patient is at an acute elevated risk for dysphagia given alcohol withdrawal syndrome with delirium and comorbidities (i.e., GERD, ETOH use disorder, Kelly's esophagus, hiatal hernia). At time of evaluation, no overt signs of dysphagia/aspiration
observed but patient at risk to fluctuate. Instrumental swallowing assessment would be challenging given cognitive changes.
Recommend:
1. IDDSI Level 7 Regular, Thin
2. Medications: crushed in puree if medically cleared
3. Strategies: FULL supervision, assist as needed, small single sips/bites, slow rate, reflux precautions
4. Oral care 3x daily
5. Dysphagia f/u at the acute care level to assess use of strategies, determine if further diet modifications or instrumental swallowing assessment warranted
--- NOTE | 2025-01-10 16:21 | CM ---
HILARIA spoke with Angela with [facility]; She has spoken with pt 3 times and he has declined services each time. Pt cannot be forced into treatment.
Plan: Pt plans to return home at discharge.
[2025-01-10] MEDS: VITAMIN B1 100 MG PO (20:20)
[2025-01-10] MEDS: KCL 20 MEQ PO (20:20)
--- NOTE | 2025-01-10 20:56 | PTCARENOTE ---
Oral care was not performed on patient because they stated that it was their preference to brush teeth in the morning.
[2025-01-10] MEDS: DESYREL 100 MG PO (21:33)
[2025-01-10] MEDS: MELATONIN 5 MG PO (21:33)
--- NOTE | 2025-01-10 22:45 | PTCARENOTE ---
PCT alerted this RN that while entering patient's room to obtain vital signs, patient was found drowsy, slumped in bed with spit covering the side of his gown. Pt also having a wet, gurgly cough and consistently clearing throat. Upon auscultation,
lungs sounded coarse. VSS. Spo2 of 97%. RR of 23. LOLLY Garg notfied of patient status. SUPERVISOR WINDING DEPARTMENT at bedside to assess patient. This RN was advised to hold off on giving pt anything by mouth while patient is drowsy. Plan of care ongoing.
[2025-01-11] VITALS (7 sets, daily range): BP systolic 111–159; BP diastolic 48–95; PULSE 93–108; O2SAT 99; BMI 31.6
[2025-01-11] MEDS: SYNTHROID PO (06:38)
[2025-01-11] MEDS: VITAMIN B1 100 MG PO ×2 (07:49→20:36)
[2025-01-11] MEDS: KCL 20 MEQ PO ×2 (07:49→20:36)
[2025-01-11] MEDS: FOLVITE 1 MG PO (07:49)
[2025-01-11] MEDS: LUMINAL 64.8 MG PO ×2 (07:51→15:18)
[2025-01-11] MEDS: DESENEX/MITRAZOL/ZEASORB 1 APPLIC TOPICAL ×2 (07:57→20:36)
[2025-01-11] MEDS: NEUTRA-PHOS POWDER PACKET 250 MG PO ×3 (08:00→21:45)
[2025-01-11 08:25] LABS: % Basophils 0.7 % (0-2); % Eosinophils 0.7 % (0-6); % Lymphocytes 42.3 % (20.5-51.1); % Monocytes 13.2 % (1.7-9.3); % Neutrophils 38.1 % (42.2-75.2); Absolute Immature Granulocytes 0.1 10^3/uL (0-0.05); Absolute Lymphocytes 1.2 10^3/uL (1.2-3.4); Absolute Monocytes 0.4 10^3/uL (0.1-0.6); Absolute Neutrophils 1.1 10^3/uL (1.4-6.5); Hematocrit 28.3 % (39.0-52.0); Hemoglobin 9.1 g/dL (13.0-18.0); INR 1.25; Mean Corp Hgb Conc. 32.2 g/dL (33.0-37.0); Mean Corpuscular Hgb 27.1 pg (27.0-31.0); Mean Corpuscular Volume 84.2 fL (80.0-94.0); Nucleated Red Blood Cells % 0.7 % (-); PT 16.2 Sec (11.4-14.6); Platelet Count 37 10^3/uL (130-400); Red Blood Cell Count 3.36 10^6/uL (4.70-6.10); Red Cell Dist. Width 21.7 % (11.5-14.5); White Blood Cell Count 2.8 10^3/uL (4.8-10.8)
[2025-01-11 09:10] LABS: ALT (SGPT) 189 U/L (0-50); AST (SGOT) 219 U/L (17-59); Albumin 3.4 g/dl (3.5-5.0); Alkaline Phosphatase 137 U/L (38-126); Blood Urea Nitrogen 8 mg/dl (9-20); Calcium 8.4 mg/dl (8.4-10.2); Carbon Dioxide 25 mmol/L (22-30); Chloride 103 mmol/L (98-107); Estimated Creatinine Clearance 75 ml/min; Glucose 91 mg/dl (70-99); Magnesium 1.6 mg/dl (1.6-2.3); Phosphorus 2.8 mg/dl (2.5-4.5); Potassium 3.9 mmol/L (3.5-5.1); Sodium 136 mmol/L (135-145); Total Bilirubin 1.3 mg/dl (0.2-1.3); Total Protein 6.7 g/dl (6.3-8.2); eGFR > 60.00
--- NOTE | 2025-01-11 11:08 | W.PN.HOSP.TC ---
Addendum entered and electronically signed by Elio Barcenas DO 01/11/25 15:03:
PT is recommending SNF.
Left voicemail for to call me back.
Informed case management to try to look for SNF facilities. Suspect he is medically stable to go to rehab.
Original Note:
Today's Communication/Plan
-
Await PT/OT
Assessment / Plan
Assessment / Plan
Gen-sleeping when I walked in but arousable and interactive, NAD
HEENT-NC, AT, anicteric, clear oral mm
Neck-supple
CV-reg, no M, +S1/S2
Lungs-clear B/L
Abd-soft, NT, ND
Ext-no edema
Musculoskeletal-no cyanosis, clubbing
Skin-warm and dry
Neuro-grossly non-focal
Psych-calm, cooperative
Alcohol withdrawal syndrome/acute delirium -as needed lorazepam resumed. Last dose was January 10. Continue phenobarbital taper. Continue thiamine, folic acid.
Hypovolemic shock -present on admission. Improved with IV fluids.
Hypothermia -present on admission, resolved. Doubt sepsis. Blood cultures negative. No evidence of UTI. Antibiotics discontinued.
Anion Gap Metabolic Acidosis - from alcohol, dehydration, starvation, lactic acidosis
Lactic Acidosis
- Anion gap resolved after initial IV bolus followed by isotonic bicarb infusion
SIRS with organ dysfunction characterized by DANIEL
DANIEL -due to volume depletion.
- Improving with IV fluids
Mild Hyponatremia -improved.
Hypophosphatemia -improved.
Alcohol Use Disorder -alcohol level 135 on admission. Therefore, unlikely that his last drink was 2 days prior to presentation as he stated in the emergency room. He states he drinks half a bottle wine daily, I suspect it is probably more. He
states he drinks alcohol to help him sleep. I discussed with him that alcohol actually interferes with sleep. Also takes trazodone and quetiapine for sleep with little benefit. Recommend psychiatry follow-up. Recommend rehab on discharge but
patient refusing.
Alcoholic Hepatitis -LFTs improving. GI does not recommend using steroids, in fact they are not concerned about alcoholic hepatitis. Steroids discontinued.
Pancytopenia -suspect due to alcohol abuse. Counts are stable.
HX GERD
History of peptic ulcer disease
- on OP PO PPI - continue IV PPI daily
Hypothyroidism
- Pending Rx reconciliation (levothyroxine 100 mcg is listed )
Depression and Anxiety -he is on quetiapine and trazodone at bedtime for sleep. Psychiatry resumed trazodone and melatonin, recommend holding off on Seroquel.
Nursing notes that he was quite somnolent during the night, and this morning. Can reduce trazodone dose starting tonight.
Full code
Dispo -plan to discharge to SNF versus home with VN. PT/OT to assess today. Patient not interested in alcohol rehab.
Anticipated Discharge: Within 24 hours
Subjective/Interval History
-
Date of Service: January 11, 2025
Patient seen and examined. No complaints. Eager to go home. Finished his breakfast.
Objective Data
-
Labs:
Laboratory Results
01/11/25
07:24
WBC 2.8 L
Hgb 9.1 L
Hct 28.3 L
Plt Count 37 L
PT 16.2 H
INR 1.25
Sodium 136
Potassium 3.9
Chloride 103
Carbon Dioxide 25
BUN 8 L
Creatinine 0.8
Glucose 91
Calcium 8.4
Total Bilirubin 1.3
AST 219 H
ALT 189 H
Alkaline Phosphatase 137 H
Vital Signs:
Vital Signs
Temp Pulse Resp BP Pulse Ox
97.6 F 80 19 111/60 96
01/11/25 07:00 01/11/25 07:00 01/11/25 07:00 01/11/25 07:00 01/11/25 08:20
I&O
01/10/25 01/11/25 01/12/25
06:59 06:59 06:59
Intake Total 1600 / 1600 300 / 300
Output Total 800 / 800
Balance 800 / 800 300 / 300
Review of Systems
-
History Source: Patient
All other systems: Reviewed and negative
--- NOTE | 2025-01-11 11:20 | W.PN.UPDATE ---
Update Note
Progress Note Update
patient seen chart reviewed. discussed with nursing. the patient was admitted after a fall when he hit his head. while nursing tells me he is cognitively much better since yesterday (although he still thinks it is 2005) he is not a great historian.
he has hx serious medical issues. noted likely SIRS with organ dysfunction. hypothryoid tcp present needed transfusion . alcoholic hep. he has been to rehab on many occasions. he told me his longest sobriety was ten years and tried to tell me he
had not drunk in years but also told me he drinks 'a half bottle a day' . 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 he did remember he fell and hit his head. he also told me that he does not want to be here 'it's like being in
retirement'. without the acknowledgement of his recent etoh use and the ravages to his body he cannot understand the need to be here although he did not put up a fight when i explained to him why exactly he was here. noted he was on several psych meds
well logging captain including a total of 200 mg seroquel effexor 37.5 mg daily trazodone 100 mg q hs and buspar. agree with dc of most of these and decrease in trazodone to 50 mg q hs. would consider further decrease to 25 mg. these could have played a role in his
fall. trazodone does cause orthostasis as can seroquel (he was orthostatic at admit). would check tsh reflex to t4 tomorrow if he is a better vis a vis mental status will ask re psych meds he was taking well logging captain. will follow
[2025-01-11] MEDS: NEUTRA-PHOS POWDER PACKET PO (20:35)
[2025-01-11] MEDS: MELATONIN 5 MG PO (21:45)
[2025-01-11] MEDS: DESYREL 50 MG PO (21:45)
[2025-01-11] MEDS: LUMINAL 32.4 MG PO (21:45)
[2025-01-12 03:00] VITALS: BP 132/66
[2025-01-12 04:21] VITALS: BMI 31.6
[2025-01-12] MEDS: SYNTHROID 100 MCG PO (05:20)
[2025-01-12 07:00] VITALS: BP 121/57
[2025-01-12 07:52] LABS: % Basophils 0.4 % (0-2); % Eosinophils 0.7 % (0-6); % Immature Granulocytes 3.2 % (0-0.5); % Lymphocytes 39.2 % (20.5-51.1); % Monocytes 19.4 % (1.7-9.3); % Neutrophils 37.1 % (42.2-75.2); Absolute Immature Granulocytes 0.1 10^3/uL (0-0.05); Absolute Lymphocytes 1.1 10^3/uL (1.2-3.4); Absolute Monocytes 0.6 10^3/uL (0.1-0.6); Absolute Neutrophils 1.1 10^3/uL (1.4-6.5); Hematocrit 26.6 % (39.0-52.0); Hemoglobin 8.7 g/dL (13.0-18.0); Mean Corp Hgb Conc. 32.7 g/dL (33.0-37.0); Mean Corpuscular Volume 82.6 fL (80.0-94.0); Nucleated Red Blood Cells % 0.7 % (-); Platelet Count 37 10^3/uL (130-400); Red Blood Cell Count 3.22 10^6/uL (4.70-6.10); Red Cell Dist. Width 21.7 % (11.5-14.5); White Blood Cell Count 2.8 10^3/uL (4.8-10.8)
[2025-01-12 08:15] LABS: ALT (SGPT) 145 U/L (0-50); AST (SGOT) 145 U/L (17-59); Albumin 3.2 g/dl (3.5-5.0); Alkaline Phosphatase 134 U/L (38-126); Blood Urea Nitrogen 8 mg/dl (9-20); Calcium 9.1 mg/dl (8.4-10.2); Carbon Dioxide 27 mmol/L (22-30); Chloride 103 mmol/L (98-107); Estimated Creatinine Clearance 86 ml/min; Glucose 103 mg/dl (70-99); Potassium 4.2 mmol/L (3.5-5.1); Sodium 136 mmol/L (135-145); Total Bilirubin 1.2 mg/dl (0.2-1.3); Total Protein 6.5 g/dl (6.3-8.2); eGFR > 60.00
[2025-01-12] MEDS: FOLVITE 1 MG PO (09:01)
[2025-01-12] MEDS: KCL 20 MEQ PO (09:01)
[2025-01-12] MEDS: VITAMIN B1 100 MG PO ×2 (09:01→19:42)
[2025-01-12] MEDS: NEUTRA-PHOS POWDER PACKET 250 MG PO ×4 (09:04→21:36)
[2025-01-12] MEDS: DESENEX/MITRAZOL/ZEASORB 1 APPLIC TOPICAL ×2 (09:04→19:42)
[2025-01-12] MEDS: LUMINAL 32.4 MG PO ×3 (09:04→21:36)
[2025-01-12 11:00] VITALS: BP 120/62
--- NOTE | 2025-01-12 12:03 | W.PN.UPDATE ---
Update Note
Progress Note Update
patient seen chart reviewed. discussed with nursing and with cm. the patient is in better spirits today. he was not talking about wanting out of dh as it is 'like skilled nursing'. i asked him about his assertion yesterday that he had not consumed etoh in
months. he said 'well i didn't drink the day of admission'. explained to him why he should strongly consider not drinking at all eg the effect on brain cells involved in memory balance etc etc not to mention the other deleterious effects of etoh.
he actually said i think sincerely 'thanks for telling me all that'. we also talked about the psych meds he had been on including seroquel and 'three' ten mg melaton tabs and trazodone. there is mention of efffexor in the chart but he said that was
a long time ago. he said the aforementioned were presribed for sleep. explained to him that seroquel should really not be used for sleep as there are too many ill effects in the long and short term and the combo of trazodone and seroquel really
could contribute to negatives both physically and mentally. he IS sleeping at the present time with 50 mg trazodone. snf has been recommended for dispo. he is okay with it understanding that he is at this point physically deconditioned. he is
also anemic which likely saps energy. liver enzymes coming down. tca on tox is likely false +. tsh is 13. will send text to dr varela. ? repeat? inc synthroid? will follow
--- NOTE | 2025-01-12 12:20 | W.PN.HOSP.TC ---
Today's Communication/Plan
-
Discharge planning
Free T4
Assessment / Plan
Assessment / Plan
Gen-awake, alert, NAD
HEENT-NC, AT, anicteric, clear oral mm
Neck-supple
CV-reg, no M, +S1/S2
Lungs-clear B/L
Abd-soft, NT, ND
Ext-no edema
Musculoskeletal-no cyanosis, clubbing
Skin-warm and dry
Neuro-grossly non-focal
Psych-calm, cooperative
Alcohol withdrawal syndrome/acute delirium -as needed lorazepam resumed. Last dose was January 10. Continue phenobarbital taper. Continue thiamine, folic acid.
Delirium improved.
Hypovolemic shock -present on admission. Improved with IV fluids.
Hypothermia -present on admission, resolved. Doubt sepsis. Blood cultures negative. No evidence of UTI. Antibiotics discontinued.
Anion Gap Metabolic Acidosis - from alcohol, dehydration, starvation, lactic acidosis
Lactic Acidosis
- Anion gap resolved after initial IV bolus followed by isotonic bicarb infusion
SIRS with organ dysfunction characterized by DANIEL
DANIEL -due to volume depletion. DANIEL improved.
Mild Hyponatremia -improved.
Hypophosphatemia -improved.
Alcohol Use Disorder -alcohol level 135 on admission. Therefore, unlikely that his last drink was 2 days prior to presentation as he stated in the emergency room. He states he drinks half a bottle wine daily, I suspect it is probably more. He
states he drinks alcohol to help him sleep. I discussed with him that alcohol actually interferes with sleep. Also takes trazodone and quetiapine for sleep with little benefit. Recommend psychiatry follow-up. Recommend rehab on discharge but
patient refusing.
Alcoholic Hepatitis -LFTs improving. GI does not recommend using steroids, in fact they are not concerned about alcoholic hepatitis. Steroids discontinued.
Pancytopenia -suspect due to alcohol abuse. Counts are stable.
HX GERD
History of peptic ulcer disease -PPI.
Hypothyroidism -currently on levothyroxine 100 mcg daily. Unclear if he was taking it at home or if he was taking it properly. TSH noted to be 13, free T4 pending.
Depression and Anxiety -he is on quetiapine and trazodone at bedtime for sleep. Psychiatry resumed trazodone and melatonin, recommend holding off on Seroquel.
Nursing notes that he was quite somnolent during the night, and this morning. Can reduce trazodone dose starting tonight.
Full code
Dispo -plan to discharge to SNF. Patient not interested in alcohol rehab. Medically stable for discharge. Still waiting for case management to discharge.
Anticipated Discharge: Within 24 hours
Subjective/Interval History
-
Date of Service: January 12, 2025
Patient seen and examined. No complaints.
Objective Data
-
Labs:
Laboratory Results
01/12/25
07:14
WBC 2.8 L
Hgb 8.7 L
Hct 26.6 L
Plt Count 37 L
Sodium 136
Potassium 4.2
Chloride 103
Carbon Dioxide 27
BUN 8 L
Creatinine 0.7
Glucose 103 H
Calcium 9.1
Total Bilirubin 1.2
AST 145 H
ALT 145 H
Alkaline Phosphatase 134 H
Vital Signs:
Vital Signs
Temp Pulse Resp BP Pulse Ox
97.6 F 88 18 120/62 97
01/12/25 11:00 01/12/25 11:00 01/12/25 11:00 01/12/25 11:00 01/12/25 11:00
I&O
01/11/25 01/12/25 01/13/25
06:59 06:59 06:59
Intake Total 300 / 300 990 / 990
Balance 300 / 300 990 / 990
Review of Systems
-
History Source: Patient
All other systems: Reviewed and negative
[2025-01-12] MEDS: PROTONIX 40 MG PO (13:33)
[2025-01-12 15:00] VITALS: BP 134/82
[2025-01-12 15:18] LABS: Free T4 1.53 ng/dl (0.78-2.19)
--- NOTE | 2025-01-12 16:38 | CM ---
Addendum entered by Emilee Hunter 01/13/25 11:09:
Pt has been approved for transfer to [facility] for dates of service 01/13-01/17. Final authorization has not yet been generated; Reference# #[id number].
Await call from insurance with final authorization and will arrange ambulance transport for discharge to [facility] today.
Addendum entered by Emilee Hunter 01/12/25 16:53:
Request initiated for transfer to [facility] tomorrow. I spoke with Taylor who provided reference #[id number] and records faxed to [phone].
[facility] and [facility] will review the information and contact with SNF authorization #.
Original Note:
HILARIA met with Kiko and his today. They live close to [facility] and would like transfer there. Referral sent and pt can be transferred there tomorrow pending insurance authorization.
[2025-01-12] MEDS: DESYREL 50 MG PO (21:36)
[2025-01-12] MEDS: MELATONIN 5 MG PO (21:36)
[2025-01-12 23:13] VITALS: BP 105/68
[2025-01-13] MEDS: SYNTHROID 100 MCG PO (05:32)
[2025-01-13 06:00] VITALS: BMI 30.8
[2025-01-13 06:02] LABS: % Basophils 0.3 % (0-2); % Eosinophils 0.6 % (0-6); % Immature Granulocytes 2.6 % (0-0.5); % Lymphocytes 36.1 % (20.5-51.1); % Monocytes 19.1 % (1.7-9.3); % Neutrophils 41.3 % (42.2-75.2); Absolute Immature Granulocytes 0.1 10^3/uL (0-0.05); Absolute Lymphocytes 1.3 10^3/uL (1.2-3.4); Absolute Monocytes 0.7 10^3/uL (0.1-0.6); Absolute Neutrophils 1.4 10^3/uL (1.4-6.5); Hematocrit 27.7 % (39.0-52.0); Mean Corp Hgb Conc. 32.5 g/dL (33.0-37.0); Mean Corpuscular Volume 83.2 fL (80.0-94.0); Mean Platelet Volume 10.3 fL (7.4-10.4); Nucleated Red Blood Cells % 0 % (-); Platelet Count 40 10^3/uL (130-400); Red Blood Cell Count 3.33 10^6/uL (4.70-6.10); Red Cell Dist. Width 21.9 % (11.5-14.5); White Blood Cell Count 3.5 10^3/uL (4.8-10.8)
[2025-01-13 07:00] VITALS: BP 143/81
[2025-01-13] MEDS: VITAMIN B1 100 MG PO ×2 (07:52→21:09)
[2025-01-13] MEDS: PROTONIX 40 MG PO (07:52)
[2025-01-13] MEDS: LUMINAL 32.4 MG PO ×2 (07:52→17:22)
[2025-01-13] MEDS: FOLVITE 1 MG PO (07:52)
[2025-01-13] MEDS: KCL 20 MEQ PO (07:52)
[2025-01-13] MEDS: NEUTRA-PHOS POWDER PACKET 250 MG PO ×4 (08:00→21:09)
[2025-01-13] MEDS: DESENEX/MITRAZOL/ZEASORB 1 APPLIC TOPICAL ×2 (08:23→21:12)
--- NOTE | 2025-01-13 12:38 | W.PN.HOSP.TC ---
Today's Communication/Plan
-
Discharge
Assessment / Plan
Assessment / Plan
Gen-awake, alert, NAD
HEENT-NC, AT, anicteric, clear oral mm
Neck-supple
CV-reg, no M, +S1/S2
Lungs-clear B/L
Abd-soft, NT, ND
Ext-no edema
Musculoskeletal-no cyanosis, clubbing
Skin-warm and dry
Neuro-grossly non-focal
Psych-calm, cooperative
Alcohol withdrawal syndrome/acute delirium -as needed lorazepam resumed. Last dose was January 10. Continue phenobarbital taper. Continue thiamine, folic acid.
Delirium improved.
Hypovolemic shock -present on admission. Improved with IV fluids.
Hypothermia -present on admission, resolved. Doubt sepsis. Blood cultures negative. No evidence of UTI. Antibiotics discontinued.
Anion Gap Metabolic Acidosis - from alcohol, dehydration, starvation, lactic acidosis
Lactic Acidosis
- Anion gap resolved after initial IV bolus followed by isotonic bicarb infusion
SIRS with organ dysfunction characterized by DANIEL
DANIEL -due to volume depletion. DANIEL improved.
Mild Hyponatremia -improved.
Hypophosphatemia -improved.
Alcohol Use Disorder -alcohol level 135 on admission. Therefore, unlikely that his last drink was 2 days prior to presentation as he stated in the emergency room. He states he drinks half a bottle wine daily, I suspect it is probably more. He
states he drinks alcohol to help him sleep. I discussed with him that alcohol actually interferes with sleep. Also takes trazodone and quetiapine for sleep with little benefit. Recommend psychiatry follow-up. Recommend rehab on discharge but
patient refusing.
Alcoholic Hepatitis -LFTs improving. GI does not recommend using steroids, in fact they are not concerned about alcoholic hepatitis. Steroids discontinued.
Pancytopenia -suspect due to alcohol abuse. Counts are stable.
HX GERD
History of peptic ulcer disease -PPI.
Hypothyroidism -currently on levothyroxine 100 mcg daily. Unclear if he was taking it at home or if he was taking it properly. TSH noted to be 13, free T4 1.53.
Will increase levothyroxine to 112 mcg daily. TSH in 4 weeks.
Depression and Anxiety -he is on quetiapine and trazodone at bedtime for sleep. Psychiatry resumed trazodone and melatonin, recommend holding off on Seroquel.
Nursing notes that he was quite somnolent during the night, and this morning. Continue reduced dose of trazodone.
Full code
Dispo -medically stable for discharge to SNF. Updated son at the bedside. Outpatient follow-up.
33 minutes spent in discharge process.
Anticipated Discharge: Today
Subjective/Interval History
-
Date of Service: January 13, 2025
Patient seen and examined. No complaints. Eager for discharge.
Objective Data
-
Labs:
Laboratory Results
01/13/25
05:23
WBC 3.5 L
Hgb 9.0 L
Hct 27.7 L
Plt Count 40 L
Vital Signs:
Vital Signs
Temp Pulse Resp BP Pulse Ox
97.9 F 81 18 143/81 94
01/13/25 07:00 01/13/25 07:00 01/13/25 07:00 01/13/25 07:00 01/13/25 07:00
I&O
01/12/25 01/13/25 01/14/25
06:59 06:59 06:59
Intake Total 990 / 990 980 / 980
Balance 990 / 990 980 / 980
Review of Systems
-
History Source: Patient
All other systems: Reviewed and negative
--- NOTE | 2025-01-13 12:41 | W.DS.TRANS ---
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
-
Discharge Instructions:
Discharge Diagnosis/Procedures Volume depletion, acute alcohol withdrawal
syndrome, acute kidney injury, electrolyte
abnormalities, pancytopenia
Diet Regular
Activity With assistance
Driving Restrictions No driving
Bathing Restrictions None
Blood Work CBC, CMP in 1 week
TSH in 1 month
Instructions:
Stand-Alone Forms:
Changes to Home Medications: Yes
Discharge Medications:
DC Medications w/original date entered in [facility]
cyanocobalamin (vitamin B-12) 500 mcg tablet 500 mcg PO DAILY Supplement 01/09/25
melatonin 5 mg tablet 5 mg PO HS PRN Sleep 01/09/25
folic acid 1 mg tablet 1 mg PO DAILY #30 tabs 01/13/25
levothyroxine 112 mcg capsule 112 mcg PO DAILY #30 caps 01/13/25
pantoprazole 40 mg tablet,delayed release 40 mg PO DAILY #0 tabs 01/13/25
polyethylene glycol 3350 17 gram oral powder packet 17 g PO DAILYPRN PRN constipation #0 ea 01/13/25
thiamine mononitrate (vit B1) 100 mg tablet 100 mg PO BID #0 tabs 01/13/25
trazodone 50 mg tablet 50 mg PO HS #0 tabs 01/13/25
Home Medication Changes
Levothyroxine dose increased
Quetiapine discontinued
Pending Results: No
--- NOTE | 2025-01-13 13:42 | W.PN.UPDATE ---
Update Note
Progress Note Update
patient seen chart reviewed. spoke with nursing. reviewed dr varela's note. t4 nl tsh elevated. synthroid increased. who seemed very supportive was at bedside. patient is for dc to [facility] hopefully today. patient was in
reasonable spirits. continued our discussion of the negative impact of etoh on his life. does not drink and was very much pro sobriety for her . he at least does aknowledge understanding why he should not drink. spoke of their
twelve grandchildren and how [facility] mr cunningham means to them and how grateful she is for their support. they have a great grandchild on the way and mr cunningham admits he has reason to look forward to being healthy and able to be w them. feels h still not
as sharp as usual. hopefully with resolution of his etoh wd and with continued improvement in electrolytes lft's etc as he maintains sobriety his mental acuity will improve. psych will sign off. would not jump to add any more psychotropics . would
consider further reduction of trazodone to 25 mg. it is likely that sleep should improve too with sobriety.
[2025-01-13 15:53] VITALS: BP 138/77; BP 146/77; PULSE 93; O2SAT 96
[2025-01-13 15:56] VITALS: BP 138/77; BP 146/77; PULSE 93; O2SAT 96
[2025-01-13 16:00] VITALS: BP 138/77
[2025-01-13] MEDS: MELATONIN 5 MG PO (21:09)
[2025-01-13] MEDS: DESYREL 50 MG PO (21:09)
[2025-01-13 23:00] VITALS: BP 137/54
[2025-01-14] MEDS: SYNTHROID 100 MCG PO (05:43)
[2025-01-14 06:00] VITALS: BMI 30.6
[2025-01-14 07:25] VITALS: BP 131/92
[2025-01-14] MEDS: FOLVITE 1 MG PO (09:07)
[2025-01-14] MEDS: VITAMIN B1 100 MG PO ×2 (09:07→20:41)
[2025-01-14] MEDS: PROTONIX 40 MG PO (09:07)
[2025-01-14] MEDS: KCL 20 MEQ PO (09:07)
[2025-01-14] MEDS: NEUTRA-PHOS POWDER PACKET 250 MG PO ×4 (09:10→20:41)
[2025-01-14] MEDS: DESENEX/MITRAZOL/ZEASORB 1 APPLIC TOPICAL ×2 (09:10→20:43)
--- NOTE | 2025-01-14 09:41 | CM ---
Clinical has been submitted to [facility] for auth to [facility] .
Spoke with Emi at [facility] bed available after auth received.
[facility]
report [phone]
fax [phone]
PLAN To [facility] after auth obtained
--- NOTE | 2025-01-14 12:34 | W.PN.HOSP.TC ---
Today's Communication/Plan
-
Discharge
Assessment / Plan
Assessment / Plan
Gen-awake, alert, NAD
HEENT-NC, AT, anicteric, clear oral mm
Neck-supple
CV-reg, no M, +S1/S2
Lungs-clear B/L
Abd-soft, NT, ND
Ext-no edema
Musculoskeletal-no cyanosis, clubbing
Skin-warm and dry
Neuro-grossly non-focal
Psych-calm, cooperative
Alcohol withdrawal syndrome/acute delirium -withdrawal symptoms resolved. Completed phenobarbital taper. Continue thiamine, folic acid.
Delirium improved.
Hypovolemic shock -present on admission. Improved with IV fluids.
Hypothermia -present on admission, resolved. Doubt sepsis. Blood cultures negative. No evidence of UTI. Antibiotics discontinued.
Anion Gap Metabolic Acidosis - from alcohol, dehydration, starvation, lactic acidosis
Lactic Acidosis
- Anion gap resolved after initial IV bolus followed by isotonic bicarb infusion
SIRS with organ dysfunction characterized by DANIEL
DANIEL -due to volume depletion. DANIEL improved.
Mild Hyponatremia -improved.
Hypophosphatemia -improved.
Alcohol Use Disorder -alcohol level 135 on admission. Therefore, unlikely that his last drink was 2 days prior to presentation as he stated in the emergency room. He states he drinks half a bottle wine daily, I suspect it is probably more. He
states he drinks alcohol to help him sleep. I discussed with him that alcohol actually interferes with sleep. Also takes trazodone and quetiapine for sleep with little benefit. Recommend psychiatry follow-up. Recommend rehab on discharge but
patient refusing.
Alcoholic Hepatitis -LFTs improving. GI does not recommend using steroids, in fact they are not concerned about alcoholic hepatitis. Steroids discontinued.
Pancytopenia -suspect due to alcohol abuse. Counts are stable.
HX GERD
History of peptic ulcer disease -PPI.
Hypothyroidism -currently on levothyroxine 100 mcg daily. Unclear if he was taking it at home or if he was taking it properly. TSH noted to be 13, free T4 1.53.
Levothyroxine dose increased to 112 mcg daily. TSH in 4 weeks.
Depression and Anxiety -he is on quetiapine and trazodone at bedtime for sleep. Psychiatry resumed trazodone and melatonin, recommend holding off on Seroquel.
Nursing notes that he was quite somnolent during the night, and this morning. Continue reduced dose of trazodone.
Full code
Dispo -medically stable for discharge to SNF. Updated at the bedside. Outpatient follow-up.
Anticipated Discharge: Today
Subjective/Interval History
-
Date of Service: January 14, 2025
Patient seen and examined, asking for discharge home. No complaints.
Objective Data
-
Vital Signs:
Vital Signs
Temp Pulse Resp BP Pulse Ox
98.1 F 97 18 131/92 95
01/14/25 07:25 01/14/25 07:25 01/14/25 07:25 01/14/25 07:25 01/14/25 07:25
I&O
01/13/25 01/14/25 01/15/25
06:59 06:59 06:59
Intake Total 980 / 980 400 / 400
Balance 980 / 980 400 / 400
Review of Systems
-
History Source: Patient
All other systems: Reviewed and negative
[2025-01-14 15:30] VITALS: BP 141/73
[2025-01-14] MEDS: MELATONIN 5 MG PO (20:41)
[2025-01-14] MEDS: DESYREL 50 MG PO (20:41)
[2025-01-14 23:00] VITALS: BP 113/64
[2025-01-15 05:33] VITALS: BMI 30.3
[2025-01-15] MEDS: SYNTHROID 100 MCG PO (05:47)
[2025-01-15 07:30] VITALS: BP 146/77
[2025-01-15] MEDS: VITAMIN B1 100 MG PO (08:13)
[2025-01-15] MEDS: PROTONIX 40 MG PO (08:13)
[2025-01-15] MEDS: KCL 20 MEQ PO (08:13)
[2025-01-15] MEDS: FOLVITE 1 MG PO (08:13)
[2025-01-15] MEDS: DESENEX/MITRAZOL/ZEASORB 1 APPLIC TOPICAL (08:15)
[2025-01-15] MEDS: NEUTRA-PHOS POWDER PACKET 250 MG PO ×2 (08:39→12:40)
--- NOTE | 2025-01-15 09:13 | CM ---
called [facility] for auth to [facility] spoke with Mckenzie .
Auth confirmed #[id number] from 01/15/25 to 01/17/25 [facility] fax [phone].
Health ID # [id number]
Spoke with Emi at [facility] bed available aware of auth above.
Medical nec form completed .Pt requested ambulance.
[facility]
report [phone]
fax [phone]
PLAN To [facility]
--- NOTE | 2025-01-15 11:48 | W.PN.HOSP.TC ---
Today's Communication/Plan
-
Discharge
Assessment / Plan
Assessment / Plan
Gen-awake, alert, NAD
HEENT-NC, AT, anicteric, clear oral mm
Neck-supple
CV-reg, no M, +S1/S2
Lungs-clear B/L
Abd-soft, NT, ND
Ext-no edema
Musculoskeletal-no cyanosis, clubbing
Skin-warm and dry
Neuro-grossly non-focal
Psych-calm, cooperative
Alcohol withdrawal syndrome/acute delirium -withdrawal symptoms resolved. Completed phenobarbital taper. Continue thiamine, folic acid.
Delirium improved.
Hypovolemic shock -present on admission. Improved with IV fluids.
Hypothermia -present on admission, resolved. Doubt sepsis. Blood cultures negative. No evidence of UTI. Antibiotics discontinued.
Anion Gap Metabolic Acidosis - from alcohol, dehydration, starvation, lactic acidosis
Lactic Acidosis
- Anion gap resolved after initial IV bolus followed by isotonic bicarb infusion
SIRS with organ dysfunction characterized by DANIEL
DANIEL -due to volume depletion. DANIEL improved.
Mild Hyponatremia -improved.
Hypophosphatemia -improved.
Alcohol Use Disorder -alcohol level 135 on admission. Therefore, unlikely that his last drink was 2 days prior to presentation as he stated in the emergency room. He states he drinks half a bottle wine daily, I suspect it is probably more. He
states he drinks alcohol to help him sleep. I discussed with him that alcohol actually interferes with sleep. Also takes trazodone and quetiapine for sleep with little benefit. Recommend psychiatry follow-up. Recommend rehab on discharge but
patient refusing.
Alcoholic Hepatitis -LFTs improving. GI does not recommend using steroids, in fact they are not concerned about alcoholic hepatitis. Steroids discontinued.
Pancytopenia -suspect due to alcohol abuse. Counts are stable.
HX GERD
History of peptic ulcer disease -PPI.
Hypothyroidism -currently on levothyroxine 100 mcg daily. Unclear if he was taking it at home or if he was taking it properly. TSH noted to be 13, free T4 1.53.
Levothyroxine dose increased to 112 mcg daily. TSH in 4 weeks.
Depression and Anxiety -he is on quetiapine and trazodone at bedtime for sleep. Psychiatry resumed trazodone and melatonin, recommend holding off on Seroquel.
Nursing notes that he was quite somnolent during the night, and this morning. Continue reduced dose of trazodone.
Full code
Dispo -medically stable for discharge to SNF. Updated at the bedside. Outpatient follow-up.
Anticipated Discharge: Today
Subjective/Interval History
-
Date of Service: January 15, 2025
Patient seen and examined. No complaints.
Objective Data
-
Vital Signs:
Vital Signs
Temp Pulse Resp BP Pulse Ox
98.0 F 87 18 146/77 94
01/15/25 07:30 01/15/25 07:30 01/15/25 07:30 01/15/25 07:30 01/15/25 07:30
I&O
01/14/25 01/15/25 01/16/25
06:59 06:59 06:59
Intake Total 400 / 400 960 / 960
Balance 400 / 400 960 / 960
Review of Systems
-
History Source: Patient
All other systems: Reviewed and negative
[2025-01-15 12:48] VITALS: BP 133/73
== END 2025-01-15 13:52 | DRG 896 ==
LOC: 3 WEST ACU 14:21
PROVIDERS: Nurse Practitioner Primary Care; Surgery; ADMITTING PHYSICIAN Internal Medicine; ATTENDING PHYSICIAN Hospitalist; CONSULT PHYSICIAN Internal Medicine; CONSULT PHYSICIAN Internal Medicine Hematology & Oncology; CONSULT PHYSICIAN Psychiatry & Neurology Psychiatry; CONSULT PHYSICIAN Specialist; EMERGENCY PHYSICIAN Emergency Medicine; OTHER PHYSICIAN Internal Medicine
DX: F10.231 Alcohol dependence with withdrawal delirium (principal); D61.811 Other drug-induced pancytopenia; R57.1 Hypovolemic shock; R65.11 Systemic inflammatory response syndrome (SIRS) of non-infectious origin with acute organ dysfunction; E87.4 Mixed disorder of acid-base balance; N17.9 Acute kidney failure, unspecified; D61.818 Other pancytopenia; E87.1 Hypo-osmolality and hyponatremia; M62.82 Rhabdomyolysis; R62.7 Adult failure to thrive; Z68.30 Body mass index [BMI] 30.0-30.9, adult; D75.839 Thrombocytosis, unspecified; K70.10 Alcoholic hepatitis without ascites; K52.9 Noninfective gastroenteritis and colitis, unspecified; E03.9 Hypothyroidism, unspecified; F41.9 Anxiety disorder, unspecified; F32.A Depression, unspecified; E86.0 Dehydration; K22.70 Barrett's esophagus without dysplasia; K44.9 Diaphragmatic hernia without obstruction or gangrene; E83.39 Other disorders of phosphorus metabolism
CPT/HCPCS: 71045; 74176; 80053; 80143; 80179; 80306; 80307; 81003; 81015; 82010; 82077; 82140; 82550; 82570; 82805; 82962; 82977; 83605; 83615; 83735; 83930; 84100; 84300; 84439; 84443; 84484; 85025; 85027; 85610; 85730; 86850; 86900; 86901; 87040; 87070; 90677; 92526; 92610; 93005; 96361; 96365; 96375; 97116; 97163; 97167; 97535; 99285; G0009; J7030

== ENCOUNTER 2025-02-28 02:52 | Emergency (ER) | payer OTHER, SELFPAY ==
[2025-02-28 02:59] VITALS: BP 143/78
[2025-02-28 03:57] LABS: Hematocrit 28.5 % (39.0-52.0); Hemoglobin 9.1 g/dL (13.0-18.0); Mean Corp Hgb Conc. 31.9 g/dL (33.0-37.0); Mean Corpuscular Volume 74.0 fL (80.0-94.0); Nucleated Red Blood Cells % 0 % (-); Platelet Count 57 10^3/uL (130-400); Red Cell Dist. Width 18.9 % (11.5-14.5)
[2025-02-28 04:30] LABS: Troponin I < 0.012 ng/ml
[2025-02-28 04:36] LABS: ALT (SGPT) 19 U/L (0-50); AST (SGOT) 42 U/L (17-59); Albumin 3.8 g/dl (3.5-5.0); Alkaline Phosphatase 106 U/L (38-126); Blood Urea Nitrogen 9 mg/dl (9-20); Calcium 9.5 mg/dl (8.4-10.2); Carbon Dioxide 25 mmol/L (22-30); Chloride 107 mmol/L (98-107); Glucose 106 mg/dl (70-99); Potassium 4.3 mmol/L (3.5-5.1); Sodium 137 mmol/L (135-145); Total Protein 7.6 g/dl (6.3-8.2); eGFR > 60.00
== END 2025-02-28 04:55 | disposition left against medical advice (07) ==
LOC: EMR 02:52
PROVIDERS: EMERGENCY PHYSICIAN Emergency Medicine; FAMILY PHYSICIAN Family Medicine
DX: R53.1 Weakness (principal); Z53.21 Procedure and treatment not carried out due to patient leaving prior to being seen by health care provider
CPT/HCPCS: 80053; 84484; 85025; 93005

== ENCOUNTER 2025-03-04 19:26 | Emergency (ER) | payer OTHER, SELFPAY ==
[2025-03-04 19:32] VITALS: BP 103/59
[2025-03-04 20:01] VITALS: BP 120/61
[2025-03-04 20:35] LABS: Hematocrit 27.3 % (39.0-52.0); Hemoglobin 8.9 g/dL (13.0-18.0); Mean Corp Hgb Conc. 32.6 g/dL (33.0-37.0); Mean Corpuscular Volume 72.2 fL (80.0-94.0); Platelet Count 44 10^3/uL (130-400); Red Cell Dist. Width 19.5 % (11.5-14.5)
[2025-03-04 20:41] LABS: ALT (SGPT) 16 U/L (0-50); AST (SGOT) 35 U/L (17-59); Acetaminophen < 10 ug/ml (10-30); Albumin 3.3 g/dl (3.5-5.0); Alkaline Phosphatase 87 U/L (38-126); Blood Urea Nitrogen 9 mg/dl (9-20); Calcium 8.8 mg/dl (8.4-10.2); Carbon Dioxide 21 mmol/L (22-30); Chloride 111 mmol/L (98-107); Glucose 122 mg/dl (70-99); Potassium 3.3 mmol/L (3.5-5.1); Salicylate < 1.0 mg/dl (2.0-20.0); Sodium 139 mmol/L (135-145); Total Protein 7.0 g/dl (6.3-8.2); eGFR > 60.00
[2025-03-04 20:53] LABS: Absolute Neutrophils -Man Diff 1.8 10^3/uL (1.4-6.5)
[2025-03-04 20:54] LABS: Normal RBC Morphology Yes; Platelets Checked Yes; Total Cells Counted 100
--- NOTE | 2025-03-04 23:36 | ED.GENMED ---
History of Present Illness
General
Chief Complaint: Overdose Intentional
Source: patient and spouse
Exam Limitations: none
Time Seen by Provider: 03/04/25 20:07
Nursing documentation reviewed up to this point in time: agreed with
History of Present Illness
History of Present Illness:
According to patient, he has been having difficulty sleeping. He was switched from AMbien to Lunestra yesterday. He states he took 4 tablest of 3mg lunestra tonight along with his seroquel at 200mg prescribed dose and 20mg melatonin. called
911 and he was brought to ED. He is sleeping but arousable. He is unsure of how many tablets he took. states that he was given 30tablets yesterday and there are 21 tablets in the bottle. He denes SI, HI. States he just wants a good sleep
Past History
Past History
ED Past Medical History: GERD, Hypothyroidism and Other (peptic ulcer disease and chronic alcohol abuse, he has BPH alcohol withdrawal seizures difficulty with balance, colon polyps. )
ED Past Surgical History: Tonsilectomy, Urological and Other (The patient has had polypectomy, and prostate surgery. )
Social History
Tobacco: Non-smoker
Alcohol: Chronic alcoholic
Drug: None
Personal:
Living: with family
Employment: Not employed
Family History
Family History: Hypertension
Review of Systems
Review of Systems
Allergies reviewed?: Yes
All Other Systems: ROS reviewed and negative except as documented in HPI and ROS
Constitutional: Reports sleep disturbance
EENT: Reports no symptoms
Respiratory: Reports no symptoms
Cardiac: Reports no symptoms
ABD/GI: Reports no symptoms
: Reports no symptoms
Musculoskeletal: Reports no symptoms
Skin: Reports no symptoms
Neurological: Reports no symptoms
Psychiatric: Reports no symptoms
Phy Exam
General Physical Exam
General Presentation: no apparent distress
General age: appears stated age
General Skin: warm and dry
General Mental: other (sleeping but arousable)
General Hydration: appears well hydrated
Cardiovascular Exam
Cardiovascular Exam: regular rate/rhythm and no edema
Pulmonary Exam
Pulmonary Exam: lungs clear and no respiratory distress
Neurological Exam
Neurological Exam: alert, oriented x3, no motor deficits, no sensory deficits and speech normal
Musculoskeletal Exam
Musculoskeletal Exam: full ROM and neuro vasc intact
Skin Exam
Skin Exam: normal color, warm/dry and no rash
Psychiatric Exam
Psychiatric Exam: other (sleeeping but arousable)
Course
Orders/Labs/Results
Orders:
Orders
03/04/25 19:31
Electrocardiogram (*1) Urgent
Reason for Study: Fatigue / Weakness
03/04/25 19:32
EKG- Treatment ONCE
03/04/25 20:13
Acetaminophen Urgent
Alcohol Urgent
Complete Blood Count/With Diff Urgent
Comprehensive Metabolic Panel Urgent
Manual Differential Urgent
Salicylate Urgent
03/04/25 21:05
CT Head W/o Iv Contrast Urgent
Comment:
Reason For Exam: fall
Abnormal Lab Results
03/04/25
20:13
WBC 4.0 L 10^3/uL
(4.8-10.8)
RBC 3.78 L 10^6/uL
(4.70-6.10)
Hgb 8.9 L g/dL
(13.0-18.0)
Hct 27.3 L %
(39.0-52.0)
MCV 72.2 L fL
(80.0-94.0)
MCH 23.5 L pg
(27.0-31.0)
MCHC 32.6 L g/dL
(33.0-37.0)
RDW 19.5 H %
(11.5-14.5)
Plt Count 44 L D 10^3/uL
(130-400)
Monocytes (Manual) 15 H %
(2-9)
Potassium 3.3 L mmol/L
(3.5-5.1)
Chloride 111 H mmol/L
(98-107)
Carbon Dioxide 21 L mmol/L
(22-30)
Glucose 122 H mg/dl
(70-99)
Albumin 3.3 L g/dl
(3.5-5.0)
Salicylates < 1.0 L mg/dl
(2.0-20.0)
Acetaminophen < 10 L ug/ml
(10-30)
03/04/25 20:13
03/04/25 20:13
Vital Signs
Initial and Last Documented VS:
Initial Vital Signs
Temp Pulse Resp BP Pulse Ox
98.6 F 76 18 103/59 95
03/04/25 19:32 03/04/25 19:32 03/04/25 19:32 03/04/25 19:32 03/04/25 19:32
Last Documented Vital Signs
Temp Pulse Resp BP Pulse Ox
98.6 F 75 21 120/61 96
03/04/25 19:32 03/04/25 20:30 03/04/25 20:30 03/04/25 20:01 03/04/25 23:44
*Pulse Oximetry
SaO2: 96
Oxygen Mode of Delivery: Room air
Patient hypoxic: no
*Critical Care Note
Total Time (30-74mins, 75-104mins- exclusive of procedures): Not Applicable
Update Note
Update Note:
Patient to ED after taking 4, possibly more, Lunestra tonight. Denies SI, states he just wants a good sleep. Poison control consulted. Supportive measures only. Patient was given 1LNSS on arrival to ED. VSS. Normotensive, pulse ox 99% RA. Labs
reviewed. CBC - anemia, thrombocytopenia noted. He is at his baseline. CMP stable. Patient resting quietly. AMbulated to BR since arrival, no difficulty with ambulation. Will continue to observe. Dr. Burch to assume care of this patient.
ED Attending Note
-
Portions of this chart may have been created with voice recognition software.� Occasional wrong word or��sound alike� substitutions may have occurred due to the inherent limitations of voice recognition software.
Discharge Plan
Departure
Patient Disposition: Home (Routine Discharge)
Date of Disposition: 03/05/25
Time of Disposition: 01:53
Patient with high blood pressure during this ER visit?: No
Condition: Good
Covid-19: Not Applicable
Discharge Problem:
lunestra overdose
Instructions: Accidental Overdose, Adult ED
Prescriptions:
No Action
cyanocobalamin (vitamin B-12) 500 mcg Tablet
500 mcg PO DAILY
Patient Comments:
OTC
melatonin 5 mg Tablet
5 mg PO HS PRN (Reason: Sleep)
Patient Comments:
OTC
trazodone 50 mg Tablet
50 mg PO HS Qty: 0 0RF
polyethylene glycol 3350 17 gram Powder In Packet
17 g PO DAILYPRN PRN (Reason: constipation) Qty: 0 0RF
pantoprazole 40 mg Tablet,Delayed Release (Dr/Ec)
40 mg PO DAILY Qty: 0 0RF
folic acid 1 mg Tablet
1 mg PO DAILY Qty: 30 0RF
thiamine mononitrate (vit B1) 100 mg Tablet
100 mg PO BID Qty: 0 0RF
levothyroxine 112 mcg capsule
112 mcg PO DAILY Qty: 30 0RF
Referrals:
UNKNOWN - PT NOT,INTERVIEWE [Family Provider]
Activity Restrictions/Additional Instructions:
Follow up with your family doctor. TAKE YOUR MEDICATIONS PRESCRIBED.
Interventions
Interventions:
*Risk Screen - Suicide Last Done: 03/04/25 19:43
*General Assessment Last Done: 03/04/25 19:43
*Neglect/Abuse Screening Last Done: 03/04/25 19:43
*ED- Fall Risk Assessment Last Done: 03/04/25 19:40
*Nursing Disposition Last Done: 03/05/25 03:06
ED- Cardiac Assessment Last Done: 03/04/25 19:43
ED- Neurological Assessment Last Done: 03/04/25 19:49
ED-Psychological Assessment Last Done: 03/04/25 19:50
ED- Pulmonary Assessment Last Done: 03/04/25 19:37
Discharge Date and Time
Discharge Date/Time: 03/05/25 03:07
Print Language: MOZAMBICAN
== END 2025-03-05 03:07 | disposition home or self-care (01) ==
LOC: EMR 19:26
PROVIDERS: Nurse Practitioner; EMERGENCY PHYSICIAN Emergency Medicine
DX: T42.6X1A Poisoning by other antiepileptic and sedative-hypnotic drugs, accidental (unintentional), initial encounter (principal); Y92.9 Unspecified place or not applicable; K21.9 Gastro-esophageal reflux disease without esophagitis; E03.9 Hypothyroidism, unspecified; F10.10 Alcohol abuse, uncomplicated; N40.0 Benign prostatic hyperplasia without lower urinary tract symptoms; Z82.49 Family history of ischemic heart disease and other diseases of the circulatory system; Z86.0100 Personal history of colon polyps, unspecified; Z87.11 Personal history of peptic ulcer disease
CPT/HCPCS: 99284; 70450; 80053; 80143; 80179; 82077; 85025; 93005

== ENCOUNTER 2025-03-07 10:52 | Emergency (ER) | payer OTHER, SELFPAY ==
[2025-03-07 10:54] VITALS: BP 109/66
--- NOTE | 2025-03-07 11:41 | ED.GENMED ---
History of Present Illness
<Bernice Gtz MD, Resident - Last Filed: 03/07/25 12:57>
General
Chief Complaint: Overdose Unintentional
Source: patient and significant other
Time Seen by Provider: 03/07/25 11:14
History of Present Illness
History of Present Illness:
84 year old male comes in to the ED at the request of his primary care physician due to concern for possible Lunestra overdose. Patient was here for the same reason last week where he had taken 4 tablets of 3mg Lunestra along with his Seroquel. He
was given supportive therapy and discharged once he was stable. He had 21 tablets of the medication left at that time. Currently, the patient only has 2 tablets remaining. The believes that the patient has taken those pills over the past 3
days. Currently, he reports no symptoms and has no trouble breathing, has no chest pain. He only has some trouble with balance and some chills at the moment. Patient is concurrently on benzodiazepines as well so there is concern for multiple drug
overdose.
Past History
<Bernice Gtz MD, Resident - Last Filed: 03/07/25 12:57>
Past History
ED Past Medical History: GERD, Hypothyroidism and Other (peptic ulcer disease and chronic alcohol abuse, he has BPH alcohol withdrawal seizures difficulty with balance, colon polyps. )
ED Past Surgical History: Tonsilectomy, Urological and Other (The patient has had polypectomy, and prostate surgery. )
Social History
Tobacco: Non-smoker
Alcohol: Chronic alcoholic
Drug: None
Personal:
Living: with family
Employment: Not employed
Family History
Family History: Hypertension
Review of Systems
<Bernice Gtz MD, Resident - Last Filed: 03/07/25 12:57>
Review of Systems
Constitutional: Reports chills
EENT: Reports no symptoms
Respiratory: Reports no symptoms
Cardiac: Reports no symptoms
ABD/GI: Reports no symptoms
: Reports no symptoms
Musculoskeletal: Reports no symptoms
Skin: Reports no symptoms
Neurological: Reports no symptoms
Endocrine: Reports no symptoms
Hematologic/Lymphatic: Reports no symptoms
Psychiatric: Denies suicidal
Phy Exam
<Bernice Gtz MD, Resident - Last Filed: 03/07/25 12:57>
General Physical Exam
General Presentation: mild distress
General age: appears stated age
General Skin: warm and dry
General Habitus: elderly
General Mental: anxious
Eye Exam
Eye Exam: PERRL and EOMI
Cardiovascular Exam
Cardiovascular Exam: regular rate/rhythm, no edema and no murmur
Pulmonary Exam
Pulmonary Exam: lungs clear, no respiratory distress and no crackles
Gastrointestinal Exam
Gastrointestinal Exam: normal bowel sounds, non tender, soft and non distended
Psychiatric Exam
Psychiatric Exam: normal mood/affect, anxious and other (Not suicidal)
Course
<Bernice Gtz MD, Resident - Last Filed: 03/07/25 12:57>
Orders/Labs/Results
Orders:
Orders
03/07/25 11:57
PSYCHIATRY CONSULT Urgent
Consulting Provider: Tirso Griffin
Was physician already notified: Yes
Reason for consult: Overdose Medication
Vital Signs
Initial and Last Documented VS:
Initial Vital Signs
Temp Pulse Resp BP Pulse Ox
98.3 F 83 17 109/66 96
03/07/25 10:54 03/07/25 10:54 03/07/25 10:54 03/07/25 10:54 03/07/25 10:54
Last Documented Vital Signs
Temp Pulse Resp BP Pulse Ox
98.3 F 83 17 109/66 96
03/07/25 10:54 03/07/25 10:54 03/07/25 10:54 03/07/25 10:54 03/07/25 11:50
<Alphonse Ritchie DO - Last Filed: 03/07/25 12:11>
Orders/Labs/Results
Orders:
Orders
03/07/25 11:57
PSYCHIATRY CONSULT Urgent
Consulting Provider: Tirso Griffin
Was physician already notified: Yes
Reason for consult: Overdose Medication
Vital Signs
Initial and Last Documented VS:
Initial Vital Signs
Temp Pulse Resp BP Pulse Ox
98.3 F 83 17 109/66 96
03/07/25 10:54 03/07/25 10:54 03/07/25 10:54 03/07/25 10:54 03/07/25 10:54
Last Documented Vital Signs
Temp Pulse Resp BP Pulse Ox
98.3 F 83 17 109/66 96
03/07/25 10:54 03/07/25 10:54 03/07/25 10:54 03/07/25 10:54 03/07/25 11:50
<Bernice Gtz MD, Resident - Last Filed: 03/07/25 12:57>
MDM/Problems Addressed
Differential Diagnosis Includes:
Lunestra Overdose, Possible polypharmacy, Dementia
MDM/Problems Addressed:
84 year old male comes in to the ED at the request of his PCP due to Lunestra/possible Benzo overdose
Patient is asymptomatic and reports that he was told 'he was going to ' if he didnt come to the ED and get a shot
No abnormalities seen and patient's has his medication bottle which has only 2 of the tablets remaining
Consulted Psych for input who believe he should not be on the medication and he needs something else for his sleep management
Do not need labwork or imaging at this time as patient has no symptoms
Will monitor for any changes and discharge patient if stable with instructions to take his medications as prescribed
No changes noted in patient. Will discharge with instructions to follow up with Psychiatry
Chronic conditions affecting care: Psychiatric illness
<Bernice Gtz MD, Resident - Last Filed: 03/07/25 12:57>
*Pulse Oximetry
SaO2: 96
Oxygen Mode of Delivery: Room air
Patient hypoxic: no
*Critical Care Note
Total Time (30-74mins, 75-104mins- exclusive of procedures): Not Applicable
ED Attending Note
<Bernice Gtz MD, Resident - Last Filed: 03/07/25 12:57>
-
Portions of this chart may have been created with voice recognition software.� Occasional wrong word or��sound alike� substitutions may have occurred due to the inherent limitations of voice recognition software.
<Alphonse Ritchie, - Last Filed: 03/07/25 12:11>
ED Attending Note
Patient seen and examined by attending physician: Yes
I performed the substantive portion of visit, reviewed & personally made and approve the management plan that is documented in note by myself or YUNIER.: Yes
ED Attending Note:
Seen with resident prior records from a few days ago reviewed, psychiatry consultation from previously reviewed 84-year-old male history of alcoholism insomnia seen here couple days ago concerned that he was taking too many of his sleeping pills,
workup including CAT scan of the head and labs discharged to follow-up with PCP with PCP office today referred back to the ER, apparently taking too many Lunesta here he looks comfortable, has poor insight,
Discharge Plan
Departure
Patient Disposition: Home (Routine Discharge)
Date of Disposition: 03/07/25
Time of Disposition: 12:56
Patient with high blood pressure during this ER visit?: No
Condition: Fair
Discharge Problem:
Lunestra Overdose
Instructions: Accidental Overdose (DC), Why taking your medicine as prescribed is important
Prescriptions:
No Action
cyanocobalamin (vitamin B-12) 500 mcg Tablet
500 mcg PO DAILY
Patient Comments:
OTC
melatonin 5 mg Tablet
5 mg PO HS PRN (Reason: Sleep)
Patient Comments:
OTC
trazodone 50 mg Tablet
50 mg PO HS Qty: 0 0RF
polyethylene glycol 3350 17 gram Powder In Packet
17 g PO DAILYPRN PRN (Reason: constipation) Qty: 0 0RF
pantoprazole 40 mg Tablet,Delayed Release (Dr/Ec)
40 mg PO DAILY Qty: 0 0RF
folic acid 1 mg Tablet
1 mg PO DAILY Qty: 30 0RF
thiamine mononitrate (vit B1) 100 mg Tablet
100 mg PO BID Qty: 0 0RF
levothyroxine 112 mcg capsule
112 mcg PO DAILY Qty: 30 0RF
Referrals:
Darek Montes DO [Family Provider, Family Practice]
Activity Restrictions/Additional Instructions:
As discussed, please take medications as prescribed.
Please follow up with psychiatry in the outpatient setting for further evaluation.
Interventions
Interventions:
*Risk Screen - Suicide Last Done: 03/07/25 10:59
*General Assessment Last Done: 03/07/25 10:59
*Neglect/Abuse Screening Last Done: 03/07/25 10:59
*ED COVID-19 Vaccine History Last Done: 03/07/25 10:59
ED- Cardiac Assessment Last Done: 03/07/25 12:05
ED- Neurological Assessment Last Done: 03/07/25 12:05
ED-Psychological Assessment Last Done: 03/07/25 12:06
ED- Pulmonary Assessment Last Done: 03/07/25 12:05
Discharge Date and Time
Print Language: ROMANIAN
== END 2025-03-07 13:26 | disposition home or self-care (01) ==
LOC: EMR 10:52
PROVIDERS: EMERGENCY PHYSICIAN Emergency Medicine; FAMILY PHYSICIAN Family Medicine
DX: T50.901A Poisoning by unspecified drugs, medicaments and biological substances, accidental (unintentional), initial encounter (principal); R68.83 Chills (without fever); R26.89 Other abnormalities of gait and mobility; F10.20 Alcohol dependence, uncomplicated; E03.9 Hypothyroidism, unspecified; G47.00 Insomnia, unspecified; K21.9 Gastro-esophageal reflux disease without esophagitis; N40.0 Benign prostatic hyperplasia without lower urinary tract symptoms; R56.9 Unspecified convulsions; Z86.0100 Personal history of colon polyps, unspecified; Z87.11 Personal history of peptic ulcer disease
CPT/HCPCS: 99282